=== PATIENT | female | born 1930 | race Caucasian/White ===

== ENCOUNTER 2016-04-22 11:37 | Inpatient (IN) ==
--- NOTE | 2016-04-22 12:05 | Emergency Department Note ---
Nausea/Vomiting/Diarrhea HPI - General Chief complaint: Nausea/Vomiting/Diarrhea Stated complaint: Vomiting x1.5 weeks, diarrhea, cough Time Seen by Provider: 04/22/16 12:01 Source: patient Mode of arrival: ambulatory Limitations: no limitations - History of Present Illness HPI Narrative: This patient has been ill for about a week and half with nausea vomiting diarrhea. Also a cough. Her son has been ill with a similar syndrome for about a month. MD complaint: nausea, vomiting, diarrhea Onset (ago): day(s) Description of Vomiting: watery Description of Diarrhea: water Associated Abdominal Pain: No - Related Data Home Medications Medication Instructions Recorded Confirmed Acetaminophen W/Codeine #4 1 tab PO HS 02/28/16 04/22/16 [Tylenol #4] Zolpidem [Ambien] 5 mg PO HSP PRN 02/28/16 04/22/16 rOPINIRole HCL [Requip] 4 mg PO HS 02/28/16 04/22/16 traMADol [Ultram] 50 mg PO Q6HP PRN 02/28/16 04/22/16 Previous Rx's Medication Instructions Recorded glipizide 5 mg tablet 5 mg PO BIDAC #60 tab 04/28/15 valsartan 320 1 each PO DAILY #90 tab 04/28/15 mg-hydrochlorothiazide 25 mg tablet potassium chloride ER 10 mEq 10 [facility] tab 11/17/15 tablet,extended release Allergies Allergy/AdvReac Type Severity Reaction Status Date / Time Calcium Channel Blocking Allergy Unknown Verified 04/13/15 10:01 Agents-Elliott nifedipine [From Procardia] Allergy Unknown Verified 04/13/15 10:01 Review of Systems Constitutional: Denies: fever Eyes: Denies: eye pain ENT ED: Denies: ear pain Cardiovascular: Denies: chest pain Respiratory: Reports: cough. Denies: dyspnea Gastrointestinal: Reports: nausea, vomiting, diarrhea. Denies: abdominal pain Genitourinary: Denies: urgency Musculoskeletal: Denies: back pain Integumentary: Denies: rash Past Medical History - Past Medical History Medical history: Reports: arthritis, diabetes, hyperlipidemia, hypertension, migraine, renal disease Surgical history ED: Reports: , cataract, other (shoulder) Psychiatric history: Reports: anxiety [employer] history: Reports: bilateral tubal ligation - Social History Alcohol use: Reports: None, Occasionally Drug use: Reports: none Physical Exam - General Limitations: no limitations General appearance: alert - Head Head exam: atraumatic - Eye Eye exam: Present: normal appearance - ENT ENT exam: normal exam - Neck Neck exam: Present: normal inspection - Chest Chest inspection: Present: normal inspection - Respiratory Respiratory exam: Present: normal lung sounds bilaterally - Cardiovascular Cardiovascular exam: Present: regular rate, normal rhythm, normal heart sounds - Abdominal Exam Abdominal exam: Present: soft. Absent: distention, tenderness - Neurological Exam Neurological exam: Present: alert - Psychiatric Psychiatric exam: Present: normal affect - Skin Skin exam: Present: warm, dry Course Vital Signs Temperature 97.1 F L 04/22/16 11:38 Pulse Rate 74 04/22/16 11:38 Respiratory Rate 18 04/22/16 11:38 Blood Pressure 189/85 04/22/16 11:38 Pulse Oximetry (%) 100 04/22/16 11:38 Temperature 97.1 F L 04/22/16 11:38 Pulse Rate 88 04/22/16 20:23 Respiratory Rate 18 04/22/16 20:23 Blood Pressure 185/76 04/22/16 20:23 Pulse Oximetry (%) 98 04/22/16 20:23 Nausea/Vomiting/Diarrhea - Lab Data Lab results reviewed: Yes I reviewed the patient's lab results. Result diagrams: 04/22/16 12:10 04/22/16 12:10 Lab Results 04/22/16 04/22/16 04/22/16 Range/Units 12:10 12:10 12:10 WBC 7.3 (4.5-11.0) K/mcL RBC 3.77 L (4.00-5.20) M/mcL Hgb 12.3 (12.0-15.0) g/dL Hct 35.8 L (36.0-48.0) % MCV 94.9 (80.0-100.0) fL MCH 32.6 (26.0-34.0) pg MCHC 34.3 (31.0-36.0) g/dL RDW 12.5 (11.5-14.5) % Plt Count 305 (140-440) K/mcL MPV 9.6 (7.4-10.4) fL Gran % 78.1 H (38.0-78.0) % Lymph % (Auto) 16.8 (15.5-49.0) % [place] % (Auto) 4.4 (1.0-9.0) % Eos % (Auto) 0.5 (0.0-7.0) % Baso % (Auto) 0.2 (0.0-2.0) % Gran # 5.8 (1.8-8.0) K/mcL Lymph # 1.2 L (1.5-4.8) K/mcL [place] # 0.3 (0.1-0.9) K/mcL Eos # 0 (0.0-0.7) K/mcL Baso # 0 (0.0-0.3) K/mcL VBG Lactic Acid 1.6 (0.5-2.2) mmol/L Sodium 138 (133-145) mmol/L Potassium 4.2 (3.3-5.1) mmol/L Chloride 99 (96-108) mmol/L Carbon Dioxide 18 L (22-30) mmol/L Anion Gap 21.0 H (8-16) BUN 57 H (8-23) mg/dl Creatinine 1.6 H (0.6-1.1) mg/dl GFR Calculation 29 Glucose 213 H (70-105) mg/dL Calcium 10.1 (8.6-10.4) mg/dl Total Bilirubin 0.6 (0.0-1.0) mg/dL AST 17 (0-37) U/l ALT 15 (0-40) U/l Alkaline Phosphatase 57 (39-117) U/L Total Protein 7.5 (5.9-8.4) gm/dL Albumin 4.1 (3.2-5.2) gm/dL Globulin 3.4 (2.2-3.7) gm/dL Albumin/Globulin Ratio 1.2 (1.0-2.3) Urine Color Urine Appearance Urine pH (5.0-9.0) Ur Specific Randall (1.000-1.035) Urine Protein (NEG) mg/dL Urine Glucose (UA) (NEG) mg/dL Urine Ketones (NEG) mg/dL Urine Occult Blood (<0.03) mg/dL Urine Nitrate (NEG) Urine Bilirubin (NEG) mg/dL Urine Urobilinogen (NEG) mg/dL Ur Leukocyte Esterase (NEG) /uL Urine RBC (0-1) /hpf Urine WBC (0-4) /hpf Ur Squamous Epith Cells (0-4) /hpf Amorphous Crystals (0) /hpf Urine Bacteria (0) /hpf Hyaline Casts (0-2) /lpf Urine Mucus (0) /hpf Ur Culture Indicated? 04/22/16 Range/Units 12:50 WBC (4.5-11.0) K/mcL RBC (4.00-5.20) M/mcL Hgb (12.0-15.0) g/dL Hct (36.0-48.0) % MCV (80.0-100.0) fL MCH (26.0-34.0) pg MCHC (31.0-36.0) g/dL RDW (11.5-14.5) % Plt Count (140-440) K/mcL MPV (7.4-10.4) fL Gran % (38.0-78.0) % Lymph % (Auto) (15.5-49.0) % [place] % (Auto) (1.0-9.0) % Eos % (Auto) (0.0-7.0) % Baso % (Auto) (0.0-2.0) % Gran # (1.8-8.0) K/mcL Lymph # (1.5-4.8) K/mcL [place] # (0.1-0.9) K/mcL Eos # (0.0-0.7) K/mcL Baso # (0.0-0.3) K/mcL VBG Lactic Acid (0.5-2.2) mmol/L Sodium (133-145) mmol/L Potassium (3.3-5.1) mmol/L Chloride (96-108) mmol/L Carbon Dioxide (22-30) mmol/L Anion Gap (8-16) BUN (8-23) mg/dl Creatinine (0.6-1.1) mg/dl GFR Calculation Glucose (70-105) mg/dL Calcium (8.6-10.4) mg/dl Total Bilirubin (0.0-1.0) mg/dL AST (0-37) U/l ALT (0-40) U/l Alkaline Phosphatase (39-117) U/L Total Protein (5.9-8.4) gm/dL Albumin (3.2-5.2) gm/dL Globulin (2.2-3.7) gm/dL Albumin/Globulin Ratio (1.0-2.3) Urine Color Yellow Urine Appearance Clear Urine pH 5.0 (5.0-9.0) Ur Specific Randall 1.016 (1.000-1.035) Urine Protein 100 A (NEG) mg/dL Urine Glucose (UA) 50 A (NEG) mg/dL Urine Ketones 20 A (NEG) mg/dL Urine Occult Blood Neg (<0.03) mg/dL Urine Nitrate Neg (NEG) Urine Bilirubin Neg (NEG) mg/dL Urine Urobilinogen Neg (NEG) mg/dL Ur Leukocyte Esterase Neg (NEG) /uL Urine RBC 1 (0-1) /hpf Urine WBC 1 (0-4) /hpf Ur Squamous Epith Cells < 1 (0-4) /hpf Amorphous Crystals Few A (0) /hpf Urine Bacteria 0 (0) /hpf Hyaline Casts 4 H (0-2) /lpf Urine Mucus Few (0) /hpf Ur Culture Indicated? No - Radiology Data Radiology results reviewed: Yes I reviewed the patient's radiology results. Disposition Clinical Impression: Gastroenteritis Disposition: Xfer As Outpt/Obs ([facility]) Condition: Fair Referrals: Mildred Bennett MD [Primary Care Provider] - Time of Disposition: 21:55
[2016-04-22] MEDS ORDERED: ONDANSETRON 4 MG/2 ML VIAL IV ONE (12:06)
[2016-04-22] MEDS ORDERED: 0.9 % SODIUM CHLORIDE 1,000 ML IV ONE ×2 (12:06→15:09)
[2016-04-22] MEDS ORDERED: PROMETHAZINE 25 MG/ML VIAL IV ONE ×3 (12:51→20:59)
[2016-04-22 13:04] LABS: Basophils # (Auto) 0 K/mcL (0.0-0.3); Basophils % (Auto) 0.2 % (0.0-2.0); Eosinophils # (Auto) 0 K/mcL (0.0-0.7); Eosinophils % (Auto) 0.5 % (0.0-7.0); Granulocytes % (Auto) 78.1 % (38.0-78.0); Lymphocytes # (Auto) 1.2 K/mcL (1.5-4.8); Lymphocytes % (Auto) 16.8 % (15.5-49.0); Mean Cell Volume 94.9 fL (80.0-100.0); Mean Corpuscular HGB Conc 34.3 g/dL (31.0-36.0); Mean Corpuscular Hemoglobin 32.6 pg (26.0-34.0); Monocytes # (Auto) 0.3 K/mcL (0.1-0.9); Monocytes % (Auto) 4.4 % (1.0-9.0); Platelet Count 305 K/mcL (140-440); RBC 3.77 M/mcL (4.00-5.20); Red Cell Distribution Width 12.5 % (11.5-14.5)
[2016-04-22 13:44] LABS: ALT/SGPT 15 U/l (0-40); Albumin 4.1 gm/dL (3.2-5.2); Albumin/Globulin Ratio 1.2 (1.0-2.3); Alkaline Phosphatase 57 U/L (39-117); Blood Urea Nitrogen 57 mg/dl (8-23)
[2016-04-22 14:03] LABS: Appearance,Urine CLEAR; Bacteria,Urine 0 /hpf (0); Bilirubin,Urine NEG (NEG); Color,Urine YELLOW; Glucose,Urine (UA) 50 mg/dL (NEG); Leukocyte Esterase,Urine NEG /uL (NEG); Mucus,Urine FEW /hpf (0); Nitrate,Urine NEG (NEG); Protein,Urine 100 mg/dL (NEG); Specific Gravity,Urine 1.016 (1.000-1.035); Urine Amorphous Crystals FEW /hpf (0); Urine Blood NEG mg/dL (<0.03); Urine Hyaline Cast 4 /lpf (0-2); Urine RBC 1 /hpf (0-1); Urine Squamous Epithelial Cell < 1 /hpf (0-4); Urine WBC 1 /hpf (0-4); Urobilinogen,Urine NEG (NEG)
--- NOTE | 2016-04-22 18:50 | XRay Report ---
CLINICAL INFORMATION: Cough COMPARISON: 03/01/2015 FINDINGS: The heart is at the upper limits of normal in size. There is mitral annular calcification is again noted. The mediastinum and pulmonary vessels are otherwise normal. Lung volumes are mildly elevated compatible with known chronic bronchitis changes (also seen on 05/13/[address]). There are no infiltrates, nodules or other new pulmonary abnormalities. No effusions. Moderate calcific tendinitis swelling noted in the left rotator cuff IMPRESSION: 1. Chronic bronchitis - stable. No acute disease 2. Calcific tendinitis - left rotator cuff. Stable Interpreted and Authenticated by: Tye Mooney 04/22/16
[2016-04-22] MEDS ORDERED: 0.9 % SODIUM CHLORIDE 1,000 ML IV SCH (19:30)
[2016-04-22] MEDS ORDERED: POTASSIUM CHLORIDE 40 MEQ in DEXTROSE 5% IN WATER 500 ML IV PRN (23:01)
[2016-04-22] MEDS: LACTATED RINGERS 1,000 ML IV SCH (23:38)
[2016-04-23] MEDS ORDERED: PROMETHAZINE 25 MG/ML VIAL ONE ×2 (01:06→03:11)
[2016-04-23] MEDS ORDERED: traMADol 50 MG TABLET PO PRN ×2 (02:56→10:00)
[2016-04-23] MEDS: rOPINIRole 1 MG TABLET PO SCH ×2 (03:16→20:58)
[2016-04-23] MEDS: ONDANSETRON 4 MG/2 ML VIAL IV PRN ×4 (06:55→20:59)
[2016-04-23 07:52] LABS: Mean Cell Volume 95.3 fL (80.0-100.0); Mean Corpuscular HGB Conc 35.2 g/dL (31.0-36.0); Mean Corpuscular Hemoglobin 33.6 pg (26.0-34.0); Platelet Count 226 K/mcL (140-440); RBC 2.93 M/mcL (4.00-5.20); Red Cell Distribution Width 12.7 % (11.5-14.5)
[2016-04-23 07:55] LABS: ALT/SGPT 10 U/l (0-40); Albumin 2.8 gm/dL (3.2-5.2); Albumin/Globulin Ratio 1.2 (1.0-2.3); Alkaline Phosphatase 37 U/L (39-117); Bilirubin,Direct < 0.2 mg/dL (0.0-0.3); Blood Urea Nitrogen 30 mg/dl (8-23); Gamma Glutamyl Transpeptidase 31 U/L (5-36); Magnesium 0.9 mg/dL (1.6-2.5); Phosphorous 1.8 mg/dL (2.7-4.5); Uric Acid 7.7 mg/dL (2.5-8.0)
[2016-04-23] MEDS: MAGNESIUM SULFATE 2 GM/50 ML BAG IV PRN ×2 (08:09→09:55)
[2016-04-23] MEDS ORDERED: MAGNESIUM SULFATE 32.48 MEQ in DEXTROSE 5% IN WATER 50 ML IV ONE (09:00)
[2016-04-23 09:37] LABS: Band Neutrophils % 2 % (0-10); Lymphocytes % 14 % (15-49); Monocytes % (Manual) 5 % (1-9); Platelet Estimate NORMAL (NORMAL); RBC Morphology NORMAL (NORMAL); Segmented Neutrophils % 79 % (38-78)
--- NOTE | 2016-04-23 10:01 | Internal Med Progress Note ---
Medical - PN: Subj Patient information: Note initiated : 04/23/16 at 9:53 am Service Date, if different from initiated Date: [] Patient: Ana Mendez 85 y/o F admitted on 04/22/16 for Vomiting x1.5 wks, Diarrhea, Cough/Gastroenteritis. Chief Complaint: [] Interval history: 04/22- patient admitted with severe nausea vomiting diarrhea weakness and acute renal failure. Started on crystalloids along with antiemetics. Stool studies pending. Patient admitted in light of high risk decompensation and acute kidney injury. Continue crystalloids and supportive management until etiology identified 04/23- patient doing better. Creatinine down from 1.7-1. BUN down from 57-30. Persistent diarrhea. Improved nausea. Stable hemodynamics. Await stool studies including culture/neurovirus/ leukocytes. C. difficile negative - Constitutional Vitals: Vital Signs Temp Pulse Resp BP Pulse Ox 98.5 F 63 18 186/75 94 04/23/16 08:00 04/23/16 08:00 04/23/16 08:00 04/23/16 08:00 04/23/16 08:00 Period Temp Pulse Resp BP Sys/Pacheco Pulse Ox Last 24 Hr 97.1 F-98.5 F 63-85 18-28 170-196/75-108 94-100 Intake and Output 04/22/16 04/23/16 04/23/16 21:59 05:59 13:59 Output Total 875 / 875 520 / 520 Balance -875 / 125 -520 / -520 Intake & Output: Intake & Output 04/22/16 04/23/16 04/23/16 21:59 05:59 13:59 Output Total 875 / 875 520 / 520 Balance -875 / 125 -520 / -520 Output: Void Amount 875 / 875 520 / 520 Other: # Bowel Movements 1 1 Medical - PN: Obj Da - Labs CBC & Chem 7: 04/23/16 06:20 04/23/16 06:20 Labs: Abnormal Lab Results 04/23/16 04/23/16 06:20 06:20 RBC 2.93 L Hgb 9.8 L Hct 28.0 L Seg Neutrophils % 79 H Lymphocytes % 14 L Carbon Dioxide 18 L Anion Gap 21.0 H BUN 30 H Glucose 127 H Calcium 8.2 L Phosphorus 1.8 L Magnesium 0.9 L* Alkaline Phosphatase 37 L Total Protein 5.1 L Albumin 2.8 L Meds: Medications Lactated Ringer's (Lactated Ringers) 1,000 mls @ 75 mls/hr IV .[id number] [facility] Last Admin: 04/22/16 23:38 Dose: 75 mls/hr Potassium Chloride 40 meq/ (Dextrose) 520 mls @ 130 mls/hr IV UD PRN PRN Reason: K+ = or < 3.5 Magnesium Sulfate (Magnesium Sulfate) 2 gm in 50 mls @ 50 mls/hr IV UD PRN PRN Reason: Mag < or = 1.7 Last Admin: 04/23/16 08:09 Dose: 50 mls/hr Ondansetron HCl (Zofran) 4 mg IV Q4HP PRN PRN Reason: Nausea And Vomiting Last Admin: 04/23/16 06:55 Dose: 4 mg Potassium Chloride (Potassium Chloride) 15 meq PT BIDCC [facility] Potassium/Phosphorus/Sodium (Neutra Phos) 2 packet PO BID [facility] Promethazine HCl (Phenergan) 12.5 mg IV Q4-6HP PRN PRN Reason: Nausea And Vomiting Ropinirole HCl (Requip) 4 mg PO HS [facility] Last Admin: 04/23/16 03:16 Dose: 4 mg Tramadol HCl (Ultram) 50 mg PO Q6HP PRN PRN Reason: Pain Medical - PN: A/P - Time Spent With Patient Total time spent is greater than 50% in coordination of care (as documented) at patient's floor/unit and/or counseling patient: 25 - 35 minutes (1) Gastroenteritis Status: Acute Assessment and plan: * Acute gastroenteritis-possible viral etiology * Acute renal failure clinically improving. creatinine down to 1 * systemic inflammatory response syndrome secondary to diarrhea-improving * severe volume depletion secondary to diarrhea. Continue crystalloids * hypomagnesemia at 0.9 -replace-IV magnesium * hypokalemia replace potassium * low phosphorus continue replacement * istory of hypertension restart home medications plan * continue crystalloids and aggressive electrolyte replacement * Symptomatic management * pre-existing medical condition management as above * possible discharge in 48 hours once clinically improved Current Visit: Yes Medical - PN: Qual - VTE Deep Vein Thrombosis/Pulmonary Embolism Present on Admission: No
[2016-04-23] MEDS: NEUTRA PHOS 1 PACKET PO SCH ×2 (11:40→20:58)
--- NOTE | 2016-04-23 14:33 | History and Physical Report ---
DATE OF ADMISSION: 04/22/2016 REASON FOR ADMISSION: Nausea, vomiting, diarrhea and weakness. HISTORY OF CHIEF COMPLAINTS: The patient is an 85-year-old who comes to [facility] Emergency Room with approximately 1 week onset of worsening diarrhea, nausea, vomiting, inability to take orally. The patient has ever since deteriorated with progressive loss of function and inability to perform activities of daily living. With worsening symptoms, the patient came to [facility] ER where initial workup was significant for acute renal failure with a creatinine of 1.7, BUN 57, severe volume depletion. The patient received almost 2.5 liters of crystalloids. She has had persistent nausea. Hospitalist Service was consulted in light of high risk decompensation and nonresolving diarrhea. C. diff was negative. At the time of examination, the patient is alert and oriented. She was able to provide most of the history. She is anxious. She denies change in medications or recent sick contacts. She further denies bloody stool, dysuria, chest pain but she endorses to lightheadedness, dizziness, weakness, fatigue, and lethargy, she denies shaking chills, fever, drenching sweats, glandular swelling, rash, joint pain, arthralgias. REVIEW OF SYSTEMS: Ten-point review of system was performed and negative except the ones discussed above. PAST MEDICAL HISTORY: 1. Restless leg syndrome. 2. Degenerative joint disease. 3. Hypertension 4. Diabetes mellitus type 2. CURRENT MEDICATIONS: 1. Zolpidem 5 mg. 2. Ropinirole 4 mg. 3. Tramadol 50 mg q.6h. 4. Glipizide 5 mg b.i.d. 5. Valsartan/hydrochlorothiazide 320/25 mg. 6. Potassium 10 mEq. ALLERGIES: KNOWN TO NIFEDIPINE. SOCIAL HISTORY: Denies history of smoking or alcohol. She is a FULL CODE STATUS. [place] FAMILY HISTORY: None relevant to presenting symptoms. PHYSICAL EXAMINATION: GENERAL: The patient is alert but fatigued, lethargic. BMI 30. Height 5 feet 1 inch. VITAL SIGNS: Blood pressure 185/76, respiratory 18, temperature 97.1, pulse 82, and saturation 98% on room air. HEENT: Pupils symmetric. Oral cavity is dry. No ear or nose discharge. Head is normocephalic and atraumatic. NECK: No lymphadenopathy. CHEST: S1, S2 regular rhythm. ESM grade 1. Diminished breath sounds at bases. ABDOMEN: Soft, hyperactive bowel sounds but no rebound or guarding. LOWER EXTREMITIES: No cyanosis or clubbing. No joint swelling. SKIN: No suspicious lesions. PSYCHIATRIC: Anxious, fatigued and lethargic. NEURO: Nonfocal, moving all four extremities. LABS AND IMAGING: White count 7.3, hemoglobin 12.3, and platelets 305. Lactic acid 1.6, sodium 130, potassium 4.2, creatinine 1.6, BUN 57. LFTs unremarkable. UA unremarkable. cultures pending. X-ray chest: Chronic bronchitis. No acute flare or acute process. ASSESSMENT AND PLAN: An 85-year-old admitted with intractable nausea, vomiting, diarrhea, volume depletion, acute renal failure. 1. Acute gastroenteritis, severe diarrhea. Continue crystalloids and supportive management, evaluate for stool leukocytes, stool cultures, C. diff negative. Continue oral and IV crystalloids. 2. Acute renal failure secondary to volume depletion. Creatinine was 1.7, BUN 57, likely prerenal. Continue crystalloids and monitor renal function. 3. History of hypertension. Continue as needed hydralazine and restart ARB once renal function improves. 4. Other prior medical issues, including: a. History of restless leg syndrome. Continue ropinirole. b. Diabetes mellitus type 2. Continue sliding scale insulin. PLAN: Patient will be admitted inpatient in light of acute renal failure from volume depletion. AA:ray Job ID: [id number] Doc ID: [id number] Deven Rascon MD [facility]
[2016-04-23] MEDS: LACTATED RINGERS 1,000 ML IV SCH (16:16)
[2016-04-23] MEDS: PROMETHAZINE 25 MG/ML VIAL IV PRN (18:14)
[2016-04-23] MEDS: POTASSIUM CHLORIDE 20 MEQ/15 ML ML PT SCH (20:58)
[2016-04-23] MEDS ORDERED: ROPINIROLE HCL 4 MG PO SCH (21:00)
[2016-04-24] MEDS: ONDANSETRON 4 MG/2 ML VIAL IV PRN ×4 (03:21→18:59)
[2016-04-24] MEDS: LACTATED RINGERS 1,000 ML IV SCH ×4 (04:41→21:12)
[2016-04-24 07:21] LABS: ALT/SGPT 13 U/l (0-40); Albumin 3.7 gm/dL (3.2-5.2); Albumin/Globulin Ratio 1.2 (1.0-2.3); Alkaline Phosphatase 49 U/L (39-117); Bilirubin,Direct < 0.2 mg/dL (0.0-0.3); Blood Urea Nitrogen 29 mg/dl (8-23); Gamma Glutamyl Transpeptidase 38 U/L (5-36); Magnesium 2.2 mg/dL (1.6-2.5); Phosphorous 2.5 mg/dL (2.7-4.5); Uric Acid 9.9 mg/dL (2.5-8.0)
[2016-04-24 07:55] LABS: Mean Cell Volume 96.5 fL (80.0-100.0); Mean Corpuscular HGB Conc 33.5 g/dL (31.0-36.0); Mean Corpuscular Hemoglobin 32.3 pg (26.0-34.0); Platelet Count 248 K/mcL (140-440); Red Cell Distribution Width 12.9 % (11.5-14.5)
[2016-04-24 08:04] LABS: Lymphocytes % 12 % (15-49); Monocytes % (Manual) 5 % (1-9); Platelet Estimate NORMAL (NORMAL); RBC Morphology NORMAL (NORMAL); Segmented Neutrophils % 83 % (38-78)
[2016-04-24] MEDS: POTASSIUM CHLORIDE 20 MEQ/15 ML ML PT SCH ×2 (08:12→17:30)
[2016-04-24] MEDS: HYDROCHLOROTHIAZIDE 25 MG TABLET PO SCH (08:19)
[2016-04-24] MEDS: NEUTRA PHOS 1 PACKET PO SCH ×2 (08:20→21:13)
--- NOTE | 2016-04-24 09:38 | Internal Med Progress Note ---
Medical - PN: Subj Patient information: Note initiated : 04/24/16 at 9:34 am Service Date, if different from initiated Date: [] Patient: Ana Mendez 85 y/o F admitted on 04/22/16 for Vomiting x1.5 wks, Diarrhea, Cough/Gastroenteritis. Chief Complaint: [] Interval history: 04/22- patient admitted with severe nausea vomiting diarrhea weakness and acute renal failure. Started on crystalloids along with antiemetics. Stool studies pending. Patient admitted in light of high risk decompensation and acute kidney injury. Continue crystalloids and supportive management until etiology identified 04/23- patient doing better. Creatinine down from 1.7-1. BUN down from 57-30. Persistent diarrhea. Improved nausea. Stable hemodynamics. Await stool studies including culture/neurovirus/ leukocytes. C. difficile negative 04/24- patient doing well. No overnight events. Improved diarrhea. No abdominal pain. Improving appetite. Still feels very weak and unable to eat out of bed. Continue toattempt physical therapy. No concerns expressed by nursing staff. Stable hemodynamics. Improving electrolytes. Magnesium up to 2.2. Phosphorus 2.5. White count up at 15.4. C. difficile negative. systolics around 190. Use when necessary hydralazine. Creatinine 1.3 down from 1.7. Continue crystalloids - Constitutional Vitals: Vital Signs Temp Pulse Resp BP Pulse Ox 98.3 F 61 28 H 190/70 94 04/24/16 06:43 04/24/16 06:43 04/24/16 06:43 04/24/16 07:30 04/24/16 06:43 Period Temp Pulse Resp BP Sys/Pacheco Pulse Ox Last 24 Hr 97.1 F-98.3 F 61-83 14-28 112-215/60-90 94-97 Intake and Output 04/23/16 04/24/16 04/24/16 21:59 05:59 13:59 Intake Total 100 / 100 981 / 981 122 / 122 Output Total 425 / 425 700 / 700 59 / 59 Balance -325 / -325 281 / 281 63 / 63 Weight 134 lb Intake & Output: Intake & Output 04/23/16 04/24/16 04/24/16 21:59 05:59 13:59 Intake Total 100 / 100 981 / 981 122 / 122 Output Total 425 / 425 700 / 700 59 / 59 Balance -325 / -325 281 / 281 63 / 63 Weight 134 lb Intake: IV 931 / 931 122 / 122 Lactated Ringers 1,000 ml 931 / 931 122 / 122 @ 75 mls/hr IV .[id number] [facility] Rx#:[id number] Oral 100 / 100 50 / 50 Output: Void Amount 425 / 425 700 / 700 59 / 59 Other: # Voids 1 1 General appearance: cooperative, no acute distress Exam: nondistended abdomen nonlabored breathing Minimal anxiety o lymphedema Medical - PN: Obj Da - Labs CBC & Chem 7: 04/24/16 04:50 04/24/16 04:50 Labs: Abnormal Lab Results 04/24/16 04/24/16 04/23/16 04:50 04:50 06:20 WBC 15.4 H RBC 3.90 L Hgb Hct Seg Neutrophils % 83 H Lymphocytes % 12 L Carbon Dioxide 18 L Anion Gap 19.0 H 21.0 H BUN 29 H 30 H Creatinine 1.3 H Glucose 133 H 127 H Uric Acid 9.9 H Calcium 8.2 L Phosphorus 2.5 L 1.8 L Magnesium 0.9 L* GGT 38 H Alkaline Phosphatase 37 L Lactate Dehydrogenase 264 H Total Protein 5.1 L Albumin 2.8 L Triglycerides 200 H 04/23/16 06:20 WBC RBC 2.93 L Hgb 9.8 L Hct 28.0 L Seg Neutrophils % 79 H Lymphocytes % 14 L Carbon Dioxide Anion Gap BUN Creatinine Glucose Uric Acid Calcium Phosphorus Magnesium GGT Alkaline Phosphatase Lactate Dehydrogenase Total Protein Albumin Triglycerides Meds: Medications Hydrochlorothiazide (Oretic) 25 mg PO DAILY [facility] Last Admin: 04/24/16 08:19 Dose: 25 mg Lactated Ringer's (Lactated Ringers) 1,000 mls @ 75 mls/hr IV .[id number] [facility] Last Admin: 04/24/16 06:19 Dose: 75 mls/hr Potassium Chloride 40 meq/ (Dextrose) 520 mls @ 130 mls/hr IV UD PRN PRN Reason: K+ = or < 3.5 Magnesium Sulfate (Magnesium Sulfate) 2 gm in 50 mls @ 50 mls/hr IV UD PRN PRN Reason: Mag < or = 1.7 Last Admin: 04/23/16 09:55 Dose: 50 mls/hr Olmesartan (Benicar) 40 mg PO DAILY [facility] Ondansetron HCl (Zofran) 4 mg IV Q4HP PRN PRN Reason: Nausea And Vomiting Last Admin: 04/24/16 07:28 Dose: 4 mg Potassium Chloride (Potassium Chloride) 15 meq PT BIDCC [facility] Last Admin: 04/24/16 08:12 Dose: Not Given Potassium/Phosphorus/Sodium (Neutra Phos) 2 packet PO BID [facility] Last Admin: 04/24/16 08:20 Dose: 2 packet Promethazine HCl (Phenergan) 12.5 mg IV Q4-6HP PRN PRN Reason: Nausea And Vomiting Last Admin: 04/23/16 18:14 Dose: 12.5 mg Ropinirole HCl (Requip) 4 mg PO HS [facility] Last Admin: 04/23/16 20:58 Dose: 4 mg Tramadol HCl (Ultram) 50 mg PO Q6HP PRN PRN Reason: Pain Medical - PN: A/P - Time Spent With Patient Total time spent is greater than 50% in coordination of care (as documented) at patient's floor/unit and/or counseling patient: 25 - 35 minutes (1) Gastroenteritis Status: Acute Assessment and plan: * Acute gastroenteritis-possible viral etiology. await neurovirus. Negative C. difficile.await cultures * Acute renal failure clinically improving. creatinine at 1.3 * systemic inflammatory response syndrome secondary to diarrhea-worsening leukocytosis. Stool cultures negative so far * severe volume depletion secondary to diarrhea. Continue crystalloids * hypomagnesemia at 0.9 -magnesium 2.2 with replacement * hypokalemia- resolved with replacement * low phosphorus - phosphorus improved to 2.2 * History of hypertension continue home meds medications/as needed hydralazine plan * continue crystalloids and aggressive electrolyte replacement * as needed hydralazine * aggressive physical therapy * anticipate discharge once diarrhea and SIRS resolved Current Visit: Yes Medical - PN: Qual - VTE Deep Vein Thrombosis/Pulmonary Embolism Present on Admission: No
[2016-04-24] MEDS: hydrALAZINE 20 MG/ML VIAL IV PRN ×2 (12:10→14:30)
[2016-04-24] MEDS: OLMESARTAN MEDOXOMIL 20 MG TABLET PO SCH (16:20)
[2016-04-24] MEDS: PROMETHAZINE 25 MG/ML VIAL IV PRN (21:13)
[2016-04-24] MEDS: rOPINIRole 1 MG TABLET PO SCH ×2 (21:13→22:28)
[2016-04-25] MEDS: LACTATED RINGERS 1,000 ML IV SCH ×2 (01:29→17:08)
[2016-04-25] MEDS: ONDANSETRON 4 MG/2 ML VIAL IV PRN ×2 (01:29→06:52)
[2016-04-25] MEDS: PROMETHAZINE 25 MG/ML VIAL IV PRN ×2 (02:56→09:09)
[2016-04-25 05:48] LABS: Mean Cell Volume 94.3 fL (80.0-100.0); Platelet Count 247 K/mcL (140-440); RBC 3.64 M/mcL (4.00-5.20); Red Cell Distribution Width 12.4 % (11.5-14.5)
[2016-04-25 07:23] LABS: ALT/SGPT 13 U/l (0-40); Albumin 3.4 gm/dL (3.2-5.2); Albumin/Globulin Ratio 1.2 (1.0-2.3); Alkaline Phosphatase 44 U/L (39-117); Bilirubin,Direct < 0.2 mg/dL (0.0-0.3); Blood Urea Nitrogen 28 mg/dl (8-23); Gamma Glutamyl Transpeptidase 37 U/L (5-36); Magnesium 1.6 mg/dL (1.6-2.5); Phosphorous 2.3 mg/dL (2.7-4.5); Uric Acid 8.9 mg/dL (2.5-8.0)
[2016-04-25 08:35] LABS: Lymphocytes % 17 % (15-49); Monocytes % (Manual) 2 % (1-9); Platelet Estimate NORMAL (NORMAL); RBC Morphology NORMAL (NORMAL); Segmented Neutrophils % 81 % (38-78)
[2016-04-25] MEDS: MAGNESIUM SULFATE 2 GM/50 ML BAG IV PRN (09:11)
[2016-04-25] MEDS ORDERED: 0.9 % SODIUM CHLORIDE 10 ML SYRINGE IV PRN (10:07)
[2016-04-25] MEDS: HYDROCHLOROTHIAZIDE 25 MG TABLET PO SCH (10:27)
[2016-04-25] MEDS: OLMESARTAN MEDOXOMIL 20 MG TABLET PO SCH (10:27)
[2016-04-25] MEDS: NEUTRA PHOS 1 PACKET PO SCH ×2 (10:27→21:11)
[2016-04-25] MEDS: POTASSIUM CHLORIDE 20 MEQ/15 ML ML PT SCH ×2 (10:27→16:42)
--- NOTE | 2016-04-25 11:27 | Internal Med Progress Note ---
Medical - PN: Subj Patient information: Note initiated : 04/25/16 at 11:24 am Service Date, if different from initiated Date: [] Patient: Ana Mendez 85 y/o F admitted on 04/22/16 for Vomiting x1.5 wks, Diarrhea, Cough/Gastroenteritis. Chief Complaint: [] Interval history: 04/22- patient admitted with severe nausea vomiting diarrhea weakness and acute renal failure. Started on crystalloids along with antiemetics. Stool studies pending. Patient admitted in light of high risk decompensation and acute kidney injury. Continue crystalloids and supportive management until etiology identified 04/23- patient doing better. Creatinine down from 1.7-1. BUN down from 57-30. Persistent diarrhea. Improved nausea. Stable hemodynamics. Await stool studies including culture/neurovirus/ leukocytes. C. difficile negative 04/24- patient doing well. No overnight events. Improved diarrhea. No abdominal pain. Improving appetite. Still feels very weak and unable to eat out of bed. Continue toattempt physical therapy. No concerns expressed by nursing staff. Stable hemodynamics. Improving electrolytes. Magnesium up to 2.2. Phosphorus 2.5. White count up at 15.4. C. difficile negative. systolics around 190. Use when necessary hydralazine. Creatinine 1.3 down from 1.7. Continue crystalloids 04/25- Patient seen in room along with son. No overnight events. Continues to feel weak and fatigued. Potassium at 3. On oral replacement. No IV ccess for IV electrolytes. Consult anesthesia for IV placement. no diarrhea. Persistent nausea. Tolerating oral diet. Nutrition to provide high-protein calorie supplements - Constitutional Vitals: Vital Signs Temp Pulse Resp BP Pulse Ox 97.7 F 66 16 156/78 97 04/25/16 03:00 04/25/16 07:46 04/25/16 07:46 04/25/16 07:46 04/25/16 07:46 Period Temp Pulse Resp BP Sys/Pacheco Pulse Ox Last 24 Hr 97.5 F-98.5 F 65-78 16-20 156-204/71-100 93-98 Intake and Output 04/24/16 04/25/16 04/25/16 21:59 05:59 13:59 Intake Total 1000 / 1000 100 / 100 Output Total 750 / 750 325 / 325 150 / 150 Balance 250 / 250 -225 / -225 -150 / -150 Weight 134 lb Intake & Output: Intake & Output 04/24/16 04/25/16 04/25/16 21:59 05:59 13:59 Intake Total 1000 / 1000 100 / 100 Output Total 750 / 750 325 / 325 150 / 150 Balance 250 / 250 -225 / -225 -150 / -150 Weight 134 lb Intake: IV 1000 / 1000 Lactated Ringers 1,000 ml 1000 / 1000 @ 75 mls/hr IV .[id number] [facility] Rx#:[id number] Oral 100 / 100 Output: Urine Catheter Amount 450 / 450 Void Amount 50 / 50 325 / 325 150 / 150 Stool 250 / 250 Other: # Voids 1 1 # Bowel Movements 1 General appearance: cooperative, no acute distress Exam: lert oriented nonlabored breathing fatigue lethargic No lymphedema no anxiety Medical - PN: Obj Da - Labs CBC & Chem 7: 04/25/16 04:00 04/25/16 06:03 Labs: Abnormal Lab Results 04/25/16 04/25/16 04/24/16 06:03 04:00 04:50 WBC 14.1 H RBC 3.64 L Hgb Hct 34.3 L Seg Neutrophils % 81 H Lymphocytes % Potassium 3.0 L Carbon Dioxide Anion Gap 19.0 H BUN 28 H 29 H Creatinine 1.2 H 1.3 H Glucose 138 H 133 H Uric Acid 8.9 H 9.9 H Calcium Phosphorus 2.3 L 2.5 L Magnesium GGT 37 H 38 H Alkaline Phosphatase Lactate Dehydrogenase 264 H Total Protein Albumin Triglycerides 187 H 200 H 04/24/16 04/23/16 04/23/16 04:50 06:20 06:20 WBC 15.4 H RBC 3.90 L 2.93 L Hgb 9.8 L Hct 28.0 L Seg Neutrophils % 83 H 79 H Lymphocytes % 12 L 14 L Potassium Carbon Dioxide 18 L Anion Gap 21.0 H BUN 30 H Creatinine Glucose 127 H Uric Acid Calcium 8.2 L Phosphorus 1.8 L Magnesium 0.9 L* GGT Alkaline Phosphatase 37 L Lactate Dehydrogenase Total Protein 5.1 L Albumin 2.8 L Triglycerides Meds: Medications Hydralazine HCl (Apresoline) 10 - 20 mg IV Q4-6HP PRN PRN Reason: Hypertension Last Admin: 04/24/16 14:30 Dose: 10 mg Hydrochlorothiazide (Oretic) 25 mg PO DAILY [facility] Last Admin: 04/25/16 10:27 Dose: Not Given Lactated Ringer's (Lactated Ringers) 1,000 mls @ 75 mls/hr IV .[id number] [facility] Last Admin: 04/25/16 01:29 Dose: Not Given Potassium Chloride 40 meq/ (Dextrose) 520 mls @ 130 mls/hr IV UD PRN PRN Reason: K+ = or < 3.5 Magnesium Sulfate (Magnesium Sulfate) 2 gm in 50 mls @ 50 mls/hr IV UD PRN PRN Reason: Mag < or = 1.7 Last Admin: 04/25/16 09:11 Dose: 50 mls/hr Potassium Chloride 40 meq/ (Dextrose) 520 mls @ 130 mls/hr IV ONCE ONE Stop: 04/25/16 19:59 Olmesartan (Benicar) 40 mg PO DAILY [facility] Last Admin: 04/25/16 10:27 Dose: Not Given Ondansetron HCl (Zofran) 4 mg IV Q4HP PRN PRN Reason: Nausea And Vomiting Last Admin: 04/25/16 06:52 Dose: 4 mg Potassium Chloride (Potassium Chloride) 15 meq PT BIDCC [facility] Last Admin: 04/25/16 10:27 Dose: Not Given Potassium/Phosphorus/Sodium (Neutra Phos) 2 packet PO BID [facility] Last Admin: 04/25/16 10:27 Dose: Not Given Promethazine HCl (Phenergan) 12.5 mg IV Q4-6HP PRN PRN Reason: Nausea And Vomiting Last Admin: 04/25/16 09:09 Dose: 12.5 mg Ropinirole HCl (Requip) 4 mg PO HS [facility] Last Admin: 04/24/16 22:28 Dose: 4 mg Sodium Chloride (Saline Flush) 10 ml IV Q8 [facility] Sodium Chloride (Saline Flush) 10 ml IV UD PRN PRN Reason: Protocol Tramadol HCl (Ultram) 50 mg PO Q6HP PRN PRN Reason: Pain Medical - PN: A/P - Time Spent With Patient Total time spent is greater than 50% in coordination of care (as documented) at patient's floor/unit and/or counseling patient: 25 - 35 minutes (1) Gastroenteritis Status: Acute Assessment and plan: * Acute gastroenteritis with severe diarrhea-possible viral etiology. fully resolved * Acute renal failure clinically improving. creatinine improved 1.2 * hypokalemia-potassium at 3. continue replacement -0 mEq oral potassium * SIRS-clinically resolved. White count downtrending * severe deconditioning with weakness-Continue physical therapy/protein calorie supplements * hypomagnesemia at 0.9 -magnesium 2.2 with replacement * hypokalemia- resolved with replacement * low phosphorus - continue oral replacement * History of hypertension continue home meds medications/as needed hydralazine plan * aggressive ectrolyte replacement including potassium and phosphorus * aggressive physical therapy * pre-existing medical condition management as above * possible dischargeIn 24 hours Current Visit: Yes Medical - PN: Qual - VTE Deep Vein Thrombosis/Pulmonary Embolism Present on Admission: No
[2016-04-25] MEDS ORDERED: POTASSIUM CHLORIDE 40 MEQ in DEXTROSE 5% IN WATER 500 ML IV ONE (16:00)
[2016-04-25] MEDS: 0.9 % SODIUM CHLORIDE 10 ML SYRINGE IV SCH ×2 (16:27→22:53)
[2016-04-25] MEDS: rOPINIRole 1 MG TABLET PO SCH (21:11)
[2016-04-25] MEDS ORDERED: BENZOCAINE/MENTHOL 1 LOZENGE PO PRN (23:25)
[2016-04-25] MEDS ORDERED: BENZOCAINE/MENTHOL 1 LOZENGE PO ONE (23:43)
[2016-04-26] MEDS: 0.9 % SODIUM CHLORIDE 10 ML SYRINGE IV SCH ×2 (05:41→15:30)
[2016-04-26] MEDS: LACTATED RINGERS 1,000 ML IV SCH (05:41)
[2016-04-26 06:51] LABS: Mean Cell Volume 97.6 fL (80.0-100.0); Mean Corpuscular HGB Conc 33.5 g/dL (31.0-36.0); Mean Corpuscular Hemoglobin 32.7 pg (26.0-34.0); Platelet Count 246 K/mcL (140-440); RBC 3.22 M/mcL (4.00-5.20)
[2016-04-26 07:29] LABS: ALT/SGPT 20 U/l (0-40); Albumin/Globulin Ratio 1.2 (1.0-2.3); Alkaline Phosphatase 41 U/L (39-117); Bilirubin,Direct < 0.2 mg/dL (0.0-0.3); Blood Urea Nitrogen 27 mg/dl (8-23); Gamma Glutamyl Transpeptidase 38 U/L (5-36); Magnesium 1.8 mg/dL (1.6-2.5); Phosphorous 1.8 mg/dL (2.7-4.5); Uric Acid 7.7 mg/dL (2.5-8.0)
[2016-04-26 08:24] LABS: Band Neutrophils % 2 % (0-10); Eosinophils % (Manual) 1 % (0-7); Lymphocytes % 32 % (15-49); Monocytes % (Manual) 4 % (1-9); Platelet Estimate NORMAL (NORMAL); RBC Morphology NORMAL (NORMAL); Segmented Neutrophils % 61 % (38-78)
[2016-04-26] MEDS: POTASSIUM CHLORIDE 20 MEQ/15 ML ML PT SCH ×2 (09:30→17:07)
[2016-04-26] MEDS: NEUTRA PHOS 1 PACKET PO SCH ×2 (09:30→20:14)
[2016-04-26] MEDS: HYDROCHLOROTHIAZIDE 25 MG TABLET PO SCH (09:30)
[2016-04-26] MEDS: OLMESARTAN MEDOXOMIL 20 MG TABLET PO SCH (09:31)
--- NOTE | 2016-04-26 10:37 | Internal Med Progress Note ---
Medical - PN: Subj Patient information: Note initiated : 04/26/16 at 10:34 am Patient: Ana Mendez 85 y/o F admitted on 04/22/16 for Vomiting x1.5 wks, Diarrhea, Cough/Gastroenteritis. Chief Complaint: Interval history: 04/22- patient admitted with severe nausea vomiting diarrhea weakness and acute renal failure. Started on crystalloids along with antiemetics. Stool studies pending. Patient admitted in light of high risk decompensation and acute kidney injury. Continue crystalloids and supportive management until etiology identified 04/23- patient doing better. Creatinine down from 1.7-1. BUN down from 57-30. Persistent diarrhea. Improved nausea. Stable hemodynamics. Await stool studies including culture/neurovirus/ leukocytes. C. difficile negative 04/24- patient doing well. No overnight events. Improved diarrhea. No abdominal pain. Improving appetite. Still feels very weak and unable to eat out of bed. Continue toattempt physical therapy. No concerns expressed by nursing staff. Stable hemodynamics. Improving electrolytes. Magnesium up to 2.2. Phosphorus 2.5. White count up at 15.4. C. difficile negative. systolics around 190. Use when necessary hydralazine. Creatinine 1.3 down from 1.7. Continue crystalloids 04/25- Patient seen in room along with son. No overnight events. Continues to feel weak and fatigued. Potassium at 3. On oral replacement. No IV ccess for IV electrolytes. Consult anesthesia for IV placement. no diarrhea. Persistent nausea. Tolerating oral diet. Nutrition to provide high-protein calorie supplements 04/26- atient doing well. Ongoing physical therapy. Able to tolerate oral diet. No further diarrhea and nausea. Continues to feel weak. Discussed ischarge planning including SNF however patient wanting to go home once she is feeling better. Continue oral diet/nutrition supplements along with Replacement. No concerns expressed by nursing staff - Constitutional Vitals: Vital Signs Temp Pulse Resp BP Pulse Ox 98.0 F 83 18 150/89 96 04/26/16 07:31 04/26/16 07:31 04/26/16 07:31 04/26/16 07:31 04/26/16 07:31 Period Temp Pulse Resp BP Sys/Pacheco Pulse Ox Last 24 Hr 97.7 F-99.0 F 65-83 16-18 136-181/67-89 93-98 Intake and Output 04/25/16 04/26/16 04/26/16 21:59 05:59 13:59 Intake Total 2210 / 2210 300 / 300 Output Total 220 / 220 285 / 285 100 / 100 Balance 1989100 / -100 Weight 134 lb Intake & Output: Intake & Output 04/25/16 04/26/16 04/26/16 21:59 05:59 13:59 Intake Total 2210 / 2210 300 / 300 Output Total 220 / 220 285 / 285 100 / 100 Balance 1989100 / -100 Weight 134 lb Intake: IV 1570 / 1570 Lactated Ringers 1,000 ml 1000 / 1000 @ 75 mls/hr IV .[id number] [facility] Rx#:[id number] Dextrose 5% in Water 500 520 / 520 ml @ 130 mls/hr IV UD PRN with Potassium Chloride 40 Meq Rx#:[id number] Oral 640 / 640 300 / 300 Output: Void Amount 220 / 220 285 / 285 100 / 100 Other: Meal Dinner Percent of Meal Consumed 25% # Voids 1 General appearance: cooperative, no acute distress Exam: alert oriented nonlabored breathing Feels better since previous day nondistended abdomen No lymphedema Medical - PN: Obj Da - Labs CBC & Chem 7: 04/26/16 06:06 04/26/16 06:06 Labs: Abnormal Lab Results 04/26/16 04/26/16 04/25/16 06:06 06:06 06:03 WBC RBC 3.22 L Hgb 10.5 L Hct 31.4 L Seg Neutrophils % Lymphocytes % Potassium 3.0 L Anion Gap BUN 27 H 28 H Creatinine 1.3 H 1.2 H Glucose 112 H 138 H Uric Acid 8.9 H Calcium 8.5 L Phosphorus 1.8 L 2.3 L GGT 38 H 37 H Lactate Dehydrogenase Total Protein 5.6 L Albumin 3.0 L Triglycerides 182 H 187 H 04/25/16 04/24/16 04/24/16 04:00 04:50 04:50 WBC 14.1 H 15.4 H RBC 3.64 L 3.90 L Hgb Hct 34.3 L Seg Neutrophils % 81 H 83 H Lymphocytes % 12 L Potassium Anion Gap 19.0 H BUN 29 H Creatinine 1.3 H Glucose 133 H Uric Acid 9.9 H Calcium Phosphorus 2.5 L GGT 38 H Lactate Dehydrogenase 264 H Total Protein Albumin Triglycerides 200 H Meds: Medications Diagnostic Test (Pha) (Accu-Chek) 1 each FS BIDAC [facility] Last Admin: 04/26/16 09:31 Dose: 1 each Hydralazine HCl (Apresoline) 10 - 20 mg IV Q4-6HP PRN PRN Reason: Hypertension Last Admin: 04/24/16 14:30 Dose: 10 mg Hydrochlorothiazide (Oretic) 25 mg PO DAILY [facility] Last Admin: 04/26/16 09:30 Dose: 25 mg Lactated Ringer's (Lactated Ringers) 1,000 mls @ 75 mls/hr IV .[id number] [facility] Last Admin: 04/26/16 05:41 Dose: Not Given Potassium Chloride 40 meq/ (Dextrose) 520 mls @ 130 mls/hr IV UD PRN PRN Reason: K+ = or < 3.5 Last Infusion: 04/25/16 21:00 Dose: Infused Magnesium Sulfate (Magnesium Sulfate) 2 gm in 50 mls @ 50 mls/hr IV UD PRN PRN Reason: Mag < or = 1.7 Last Infusion: 04/25/16 21:01 Dose: Infused Olmesartan (Benicar) 40 mg PO DAILY [facility] Last Admin: 04/26/16 09:31 Dose: 40 mg Ondansetron HCl (Zofran) 4 mg IV Q4HP PRN PRN Reason: Nausea And Vomiting Last Admin: 04/25/16 06:52 Dose: 4 mg Potassium Chloride (Potassium Chloride) 15 meq PT BIDCC [facility] Last Admin: 04/26/16 09:30 Dose: 15 meq Potassium/Phosphorus/Sodium (Neutra Phos) 2 packet PO BID [facility] Last Admin: 04/26/16 09:30 Dose: 2 packet Promethazine HCl (Phenergan) 12.5 mg IV Q4-6HP PRN PRN Reason: Nausea And Vomiting Last Admin: 04/25/16 09:09 Dose: 12.5 mg Ropinirole HCl (Requip) 4 mg PO HS [facility] Last Admin: 04/25/16 21:11 Dose: 4 mg Sodium Chloride (Saline Flush) 10 ml IV Q8 [facility] Last Admin: 04/26/16 05:41 Dose: Not Given Sodium Chloride (Saline Flush) 10 ml IV UD PRN PRN Reason: Protocol Throat Lozenges (Cepacol) 1 lozenge PO PRN PRN PRN Reason: Sore Throat Tramadol HCl (Ultram) 50 mg PO Q6HP PRN PRN Reason: Pain Medical - PN: A/P - Time Spent With Patient Total time spent is greater than 50% in coordination of care (as documented) at patient's floor/unit and/or counseling patient: 15 - 24 minutes (1) Gastroenteritis Status: Acute Assessment and plan: * Acute gastroenteritis with severe diarrhea-possible viral etiology. Negative cultures/stool studies to date. fully resolved * Acute renal failure clinically improving * hypokalemia-potassium at 3. continue replacement -0 mEq oral potassium * SIRS-clinically resolved. white count normalized * severe deconditioning with weakness-Continue physical therapy/protein calorie supplements * hypomagnesemia- resolved * low phosphorus - continue oral replacement * History of hypertension continue home meds . plan * continue nutritional supplements/physical therapy * possible swing bed if continues to require inpatient rehabilitation else discharge home in 24-48 hours Current Visit: Yes Medical - PN: Qual - VTE Deep Vein Thrombosis/Pulmonary Embolism Present on Admission: No
[2016-04-26] MEDS: rOPINIRole 1 MG TABLET PO SCH (20:14)
[2016-04-26] MEDS ORDERED: ZOLPIDEM 5 MG TABLET PO PRN (23:31)
[2016-04-26] MEDS ORDERED: ZOLPIDEM 5 MG TABLET ONE (23:43)
[2016-04-27] MEDS: HYDROCHLOROTHIAZIDE 25 MG TABLET PO SCH (08:48)
[2016-04-27] MEDS: OLMESARTAN MEDOXOMIL 20 MG TABLET PO SCH (08:48)
[2016-04-27] MEDS: POTASSIUM CHLORIDE 20 MEQ/15 ML ML PT SCH (08:48)
[2016-04-27] MEDS: NEUTRA PHOS 1 PACKET PO SCH (08:49)
--- NOTE | 2016-04-27 09:34 | Discharge Summary ---
Medical - DS: Prov Patient information: Note initiated : 04/27/16 at 9:29 am Service Date, if different from initiated Date: [] Patient: Ana Mendez a 85 y/o F admitted on 04/22/16 for Vomiting x1.5 wks, Diarrhea, Cough/Gastroenteritis. Chief Complaint: [] Date of admission: 04/22/16 23:25 Discharge date: 04/27/16 Primary care physician: [f_Reg Prim Care Provider] Attending physician on discharge: Franck Joseph Discharging clinician: Franck Joseph Medical - DS: Meds - Discharge Medications Active and Home Medications: Home Medications glipizide 5 mg tablet 5 mg PO BIDAC #60 tab 04/28/15 [Rx Confirmed 04/24/16 Last Taken Unknown] valsartan 320 mg-hydrochlorothiazide 25 mg tablet 1 each PO DAILY #90 tab [Rx Confirmed 04/22/16 Last Taken Unknown] potassium chloride ER 10 mEq tablet,extended release 10 meq PO QAMCC #90 tab 10/24 [Rx Confirmed 04/22/16 Last Taken Unknown] Acetaminophen W/Codeine #4 [Tylenol #4] 1 tab PO HS 02/28/16 [History Confirmed 04/22/16 Last Taken Unknown] Zolpidem [Ambien] 5 mg PO HSP PRN 02/28/16 [History Confirmed 04/22/16 Last Taken Unknown] rOPINIRole HCL [Requip] 4 mg PO HS 02/28/16 [History Confirmed 04/22/16 Last Taken Unknown] traMADol [Ultram] 50 mg PO Q6HP PRN 02/28/16 [History Confirmed 04/22/16 Last Taken Unknown] Medical - DS: Hosp Hospital course: Ms Andrea hughes, is a 85 yr femlae who was admitted to the hospital with complaints of acute weakness, severe nausea, vomiting and diarrhea, and acute on chr renal failure. She was treated with IV fluids and conservative management with good response to treatment. Diarrhea- Improved during the hospiotal, Cdiff neg, norvovirus negative. Likely viral gastroenteritis vs food poisoning, self resolved, on discharge the patient is able to tolerate her meals well, no diarrhea, only soft stools. TAMANNA on CKd, patient has chronic renal dysfunctin, her creat at discharge is at her baseline. Weakness/ Fatigue- patient was weak and had debility due to her illness, declined PT here initially. She declined SNF placement, as well as Home health PT. The patient was able to walk with me and has a healthcare associate who will watch over her. She has a cane as well as walker for ambulation. On discharge the patient is progressing slowly back to baseline, able to tolerate po well, with diarrhea, nausea and vomiting resolved. No changes in her home medications have been done, she will continue same on discharge. Discharge diagnosis: Acute gastroenteritis - Time Spent with Patient Total time spent providing and/or coordinating discharge services: Less than 30 minutes Medical - DS: Exam - Constitutional Vitals: Vital Signs Temp Pulse Pulse Resp BP BP Pulse Ox 04/27/16 08:24 16 04/27/16 08:00 97.3 F L 72 16 118/55 97 04/27/16 03:53 98.6 F 83 20 147/89 96 04/26/16 23:13 98.4 F 64 20 118/70 98 04/26/16 20:10 66 20 98 04/26/16 19:27 98.3 F 66 20 117/71 98 04/26/16 15:47 98.0 F 76 16 126/78 97 04/26/16 12:00 98.2 F 86 18 100/63 96 Intake and Output 04/26/16 04/27/16 04/27/16 21:59 05:59 13:59 Intake Total 150 / 150 300 / 300 Output Total 775 / 775 Balance -625 / -625 300 / 300 Intake: Oral 150 / 150 300 / 300 Output: Void Amount 375 / 375 Urine/Stool Mix 400 / 400 Other: # Voids 1 1 # Bowel Movements 1 1 Weight 140 lb Additional comments: Constitutional; Afebrile, cooperative, alert, not in distress. Eyes- No icterus, No periorbital swelling Ears- Ext ear normal, hearing normal to conversation. Neck- Midline trachea, supple Respiratory system: Air Entry equal on both sides, No crackles or wheezing, no rhonchi. CVS- Rate rhythm regular, S1,S2 heard, no gallop, no rub. Abdomen- Soft nontender abdomen, no organomegaly, no tenderness, no guarding or rigidity, [employer]- AOOx3, moving all extremities, no focal deficit noted. was able to walk 20 yards without getting sob or tired Medical - DS: A/P - Patient/Caregiver Discharge Instructions Activity: increase activity as tolerated Diet: Consistent Carbohydrate Additional Instructions: Follow up with PCP in 7 days Go back to the ER if new symptoms, chest pain, fever or diarrhea. - Follow up Plan Follow up with: Mildred Bennett MD [Primary Care Provider] - Disposition: Home, Self-Care Prognosis: Fair Rehab Potential: Fair I certify that the patient requires SNF services: No Overall status at discharge: patient is progressing back to baseline Medical - DS: Qual - VTE Deep Vein Thrombosis/Pulmonary Embolism Present on Admission: No
== END 2016-04-27 11:10 | disposition home or self-care (01) | DRG 392 ==
LOC: ED 11:37 → MEDSUR 11:37 → UNDODISIN 04-27 11:10
PROVIDERS: ADMIT Internal Medicine; ATTEND Internal Medicine

== ENCOUNTER 2019-03-13 18:03 | Inpatient (IN) ==
[2019-03-13] MEDS ORDERED: 0.9 % SODIUM CHLORIDE 500 ML IV SCH (19:30)
--- NOTE | 2019-03-13 19:50 | Emergency Department Note ---
Wound/Laceration HPI - General Chief Complaint: Wound/Laceration Stated Complaint: Slit right wrist, has dementia Time Seen by Provider: 03/13/19 18:44 Source: patient, EMS Mode of arrival: EMS Limitations: no limitations - History of Present Illness HPI Narrative: 88-year-old female was brought in tonight for a laceration to her right wrist. Initially it sounded like she cut her wrist intentionally in an attention getting ploy as her son has a new girlfriend. She lives with her son in an RV. Anyways on further questioning however she is not sure why she did it. Another time when I asked her she says she did it on accident. She clearly has dementia or other cognitive impairment and does not recall-she is not able to give me any meaningful history or review of systems She was here last night-Dr. Gomez saw her and I reviewed that note. Apparently she was found on the floor of her RV. Her son's girlfriend called an ambulance and brought her in. She was cold and was worked up; however they did not feel that she needed admission at that time. She did not have evidence of UTI - Related Data Home Medications Medication Instructions Recorded Confirmed Pramipexole 1 mg PO HS 10/20/17 02/05/19 Previous Rx's Medication Instructions Recorded glipizide 5 mg tablet 5 mg PO BIDAC #60 tab 04/28/15 valsartan 320 1 each PO DAILY #90 tab 04/28/15 mg-hydrochlorothiazide 25 mg tablet potassium chloride 10 mEq 10 meq PO QAC #90 tab 11/17/15 tablet,extended release Ondansetron [Zofran ODT] 4 mg SL Q4-6HP PRN #10 tab 02/05/19 Oseltamivir Phosphate [Tamiflu] 75 mg PO BID #10 cap 02/05/19 Nitrofurantoin Sr [Macrobid] 100 mg PO BID #14 cap 03/10/19 Allergies Allergy/AdvReac Type Severity Reaction Status Date / Time Calcium Channel Blocking Allergy Severe Anaphylaxis Verified 03/13/19 18:03 Agents-Elliott nifedipine [From Procardia] Allergy Severe Anaphylaxis Verified 03/13/19 18:03 rofecoxib [From Vioxx] Allergy Severe Anaphylaxis Verified 03/13/19 18:03 Review of Systems Limitations: ROS unobtainable due to patients medical condition Past Medical History - Past Medical History Attestation: Yes: The following information was validated with the patient. [facility] Narrative: Family History Mother CHF (congestive heart failure) Son Diabetes mellitus Father Suicide Medical History Hypokalemia (Chronic) Trochanteric bursitis, right hip (Chronic) Lateral epicondylitis (Chronic) Diabetic peripheral neuropathy (Chronic) Peripheral vertigo (Chronic) Insomnia (Chronic) Hypertension (Chronic) Osteoarthritis of hip (Chronic) Diabetic renal disease (Chronic) Lactic acidosis (Acute) SIRS (systemic inflammatory response syndrome) (Acute) Acute renal injury (Acute) Hypovolemia dehydration (Acute) Metabolic encephalopathy (Acute) Electrolyte and fluid disorder (Acute) Dyslipidemia (Acute) Uncontrolled hypertension (Acute) Constipation (Acute) Nausea & vomiting (Acute) Strain of lumbar region (Acute) Restless leg syndrome (Acute) Chronic kidney disease, stage III (moderate) (Chronic) Abdominal pain (Acute) Hypertensive crisis (Chronic) Acute kidney injury (Chronic) Lactic acidosis (Chronic) Small bowel obstruction (Chronic) Duodenitis (Acute) Gastroenteritis (Acute) SIRS (systemic inflammatory response syndrome) (Acute) Malignant essential hypertension (Acute) Diabetes mellitus (Acute) Acute infective gastroenteritis (Chronic) Medical History Hypokalemia (Chronic) Trochanteric bursitis, right hip (Chronic) Lateral epicondylitis (Chronic) Diabetic peripheral neuropathy (Chronic) Peripheral vertigo (Chronic) Insomnia (Chronic) Hypertension (Chronic) Osteoarthritis of hip (Chronic) Diabetic renal disease (Chronic) Lactic acidosis (Acute) SIRS (systemic inflammatory response syndrome) (Acute) Acute renal injury (Acute) Hypovolemia dehydration (Acute) Metabolic encephalopathy (Acute) Electrolyte and fluid disorder (Acute) Dyslipidemia (Acute) Uncontrolled hypertension (Acute) Constipation (Acute) Nausea & vomiting (Acute) Strain of lumbar region (Acute) Restless leg syndrome (Acute) Chronic kidney disease, stage III (moderate) (Chronic) Abdominal pain (Acute) Hypertensive crisis (Chronic) Acute kidney injury (Chronic) Lactic acidosis (Chronic) Small bowel obstruction (Chronic) Duodenitis (Acute) Gastroenteritis (Acute) SIRS (systemic inflammatory response syndrome) (Acute) Malignant essential hypertension (Acute) Diabetes mellitus (Acute) Acute infective gastroenteritis (Chronic) Medical history: Reports: arthritis, DM, hyperlipidemia, hypertension, migraine, renal disease Psychiatric history: Reports: anxiety [employer] TECH[employer]ICIAN history: Reports: bilateral tubal ligation Surgical history ED: Reports: , cataract, other (shoulder) - Social History smoking status: Former smoker Alcohol use: Reports: None, Occasionally Drug use: Reports: none Physical Exam Thin elderly female no acute distress. Notable gross hearing loss. Normocephalic atraumatic. Conjunctive are clear sclerae white nonicteric. No nasal discharge or congestion. Oropharynx pink and moist. Neck is supple without lymphadenopathy or thyromegaly. Heart is regular rate and rhythm no mu rmur appreciated. Lungs are clear to auscultation bilaterally without wheezes rales rhonchi or respiratory distress. Abdomen is soft nontender nondistended. Her right wrist shows superficial cuts linear but this does not look like it full skin thickness-does not require repair at this time. She is able to move that right hand normally. Sensation is intact. Good hemostasis. Normal radial pulse. No pedal edema. She is alert and oriented but she is certainly a short- term memory deficit. She does not seem to recall why she fell yesterday, how she cut her wrist etc. Longer-term details like her to 2 hours and where she lives are intact however. She is in good spirits despite her situation Limitations: no limitations Course Vital Signs Temperature 97.0 F 03/13/19 18:03 Pulse Rate 94 H 03/13/19 18:03 Respiratory Rate 16 03/13/19 18:03 Blood Pressure 99/49 03/13/19 18:03 Pulse Oximetry (%) 100 03/13/19 18:03 Temperature 97.0 F 03/13/19 18:03 Pulse Rate 81 03/13/19 22:46 Respiratory Rate 17 03/13/19 21:49 Blood Pressure 123/56 03/13/19 22:46 Pulse Oximetry (%) 100 03/13/19 22:46 Wound/Laceration - Lab Data Lab results reviewed: Yes I reviewed the patient's lab results. Result diagrams: 03/13/19 19:45 03/13/19 19:45 Lab Results 03/13/19 03/13/19 03/13/19 Range/Units 19:45 19:45 19:45 WBC 9.5 (4.50-11.00) K/mcL RBC 3.22 L (3.59-5.38) M/mcL Hgb 10.6 L (11.2-15.7) g/dL Hct 30.5 L (34.1-44.9) % POC Hct 32.0 L (36.0-48.0) % MCV 94.7 (80.0-100.0) fL MCH 32.9 (26.0-34.0) pg MCHC 34.8 (31.0-36.0) g/dL RDW 14.4 (11.5-14.5) % Plt Count 233 (140-440) K/mcL MPV 11.1 H (7.4-10.4) fL Gran % 81.6 H (38.0-78.0) % Lymph % (Auto) 11.7 L (15.5-49.0) % [place] % (Auto) 5.9 (1.0-12.0) % Eos % (Auto) 0.1 (0.0-7.0) % Baso % (Auto) 0.2 (0.0-2.0) % Gran # 7.76 (1.80-8.00) K/mcL Lymph # (Auto) 1.11 L (1.50-4.80) K/mcL [place] # (Auto) 0.56 (0.10-0.90) K/mcL Eos # (Auto) 0.01 (0.00-0.70) K/mcL Baso # (Auto) 0.02 (0.00-0.30) K/mcL VBG Lactic Acid 1.0 (0.5-2.0) mmol/L POC Sodium 139 (133-145) mmol/L Sodium 135 (133-145) mmol/L POC Potassium 3.3 (3.3-5.1) mmol/L Potassium 3.5 (3.3-5.1) mmol/L POC Chloride 114 H (96-108) mmol/L Chloride 105 (96-108) mmol/L Carbon Dioxide 14 L (22-30) mmol/L POC Total CO2 16 L (22-30) mmol/L Anion Gap 16.0 (8-16) POC BUN 38 H (8-23) mg/dl BUN 45 H (8-23) mg/dl Creatinine 1.9 H (0.6-1.1) mg/dl POC Creatinine 1.9 H (0.6-1.1) mg/dl GFR Calculation 23 Glucose 111 H (70-105) mg/dL POC Glucose 105 (70-105) mg/dL Calcium 8.6 (8.6-10.4) mg/dl POC WB Ioniz Calcium 0.94 L (1.16-1.32) mmol/L Total Bilirubin < 0.2 (0.0-1.0) mg/dL AST 110 H (0-37) U/l ALT 31 (0-40) U/l Alkaline Phosphatase 45 (39-117) U/L Ammonia (11-51) umol/L Total Creatine Kinase 2944 H (24-170) IU/L Troponin T (0-0.03) ng/ml Total Protein 6.7 (5.9-8.4) gm/dL Albumin 3.6 (3.2-5.2) gm/dL Globulin 3.1 (2.2-3.7) gm/dL Albumin/Globulin Ratio 1.2 (1.0-2.3) 03/13/19 03/13/19 Range/Units 19:45 19:45 WBC (4.50-11.00) K/mcL RBC (3.59-5.38) M/mcL Hgb (11.2-15.7) g/dL Hct (34.1-44.9) % POC Hct (36.0-48.0) % MCV (80.0-100.0) fL MCH (26.0-34.0) pg MCHC (31.0-36.0) g/dL RDW (11.5-14.5) % Plt Count (140-440) K/mcL MPV (7.4-10.4) fL Gran % (38.0-78.0) % Lymph % (Auto) (15.5-49.0) % [place] % (Auto) (1.0-12.0) % Eos % (Auto) (0.0-7.0) % Baso % (Auto) (0.0-2.0) % Gran # (1.80-8.00) K/mcL Lymph # (Auto) (1.50-4.80) K/mcL [place] # (Auto) (0.10-0.90) K/mcL Eos # (Auto) (0.00-0.70) K/mcL Baso # (Auto) (0.00-0.30) K/mcL VBG Lactic Acid (0.5-2.0) mmol/L POC Sodium (133-145) mmol/L Sodium (133-145) mmol/L POC Potassium (3.3-5.1) mmol/L Potassium (3.3-5.1) mmol/L POC Chloride (96-108) mmol/L Chloride (96-108) mmol/L Carbon Dioxide (22-30) mmol/L POC Total CO2 (22-30) mmol/L Anion Gap (8-16) POC BUN (8-23) mg/dl BUN (8-23) mg/dl Creatinine (0.6-1.1) mg/dl POC Creatinine (0.6-1.1) mg/dl GFR Calculation Glucose (70-105) mg/dL POC Glucose (70-105) mg/dL Calcium (8.6-10.4) mg/dl POC WB Ioniz Calcium (1.16-1.32) mmol/L Total Bilirubin (0.0-1.0) mg/dL AST (0-37) U/l ALT (0-40) U/l Alkaline Phosphatase (39-117) U/L Ammonia 10 L (11-51) umol/L Total Creatine Kinase (24-170) IU/L Troponin T 0.01 (0-0.03) ng/ml Total Protein (5.9-8.4) gm/dL Albumin (3.2-5.2) gm/dL Globulin (2.2-3.7) gm/dL Albumin/Globulin Ratio (1.0-2.3) Urinalysis [id number] dipstick today shows small amount of blood present gravity 1.020 small amount of ketones - Radiology Data Radiology results reviewed: Yes I reviewed the patient's radiology results. Chest x-ray shows no acute infiltrate. Compared with yesterday's I do not see any new findings - EKG Data EKG attestation: Yes I reviewed and interpreted this EKG., Yes There are no EKG findings of acute coronary syndrome, Yes This EKG will be read by endocrinologist EKG results narrative: PVCs noted with lots of artifact Disposition Pt seen by FIELD IDENTIFICATION SPECIALIST/PA only: No Clinical Impression: Dehydration Laceration of wrist without complication Qualifiers: Encounter type: initial encounter Laterality: right Qualified Code(s): S61.511A - Laceration without foreign body of right wrist, initial encounter Injury by cutting and piercing instruments, undetermined intent Qualifiers: Encounter type: initial encounter Qualified Code(s): Y28.9XXA - Contact with unspecified sharp object, undetermined intent, initial encounter Rhabdomyolysis Qualifiers: Rhabdomyolysis type: non-traumatic Qualified Code(s): M62.82 - Rhabdomyolysis Summary: Work-up ordered for altered mental status Q saw patient and felt that she was not a danger to herself or others. Contracted for safety-they released her from a psychiatric standpoint. Wrist wound does not require repair. This is bandaged Laboratory shows mild rhabdomyolysis and increased creatinine consistent with dehydration. This is likely secondary to yesterday's fall and laying on the cold floor for a prolonged time. Unfortunately she is a poor historian and I am unable to sort out what exactly happened-again limited history and no significant review of systems. I discussed the case with our hospitalist Dr. Luke, he agreed to come see the patient Disposition: Xfer As Inpt ([facility]) Condition: Fair Referrals: Clarisse Crisostomo ARNP [Primary Care Provider] -
[2019-03-13 19:57] LABS: POC Blood Urea Nitrogen 38 mg/dl (8-23); POC CO2 16 mmol/L (22-30); POC Calcium, Ionized 0.94 mmol/L (1.16-1.32); POC Chloride 114 mmol/L (96-108); POC Creatinine 1.9 mg/dl (0.6-1.1); POC Glucose, Random 105 mg/dL (70-105); POC Potassium 3.3 mmol/L (3.3-5.1); POC Sodium 139 mmol/L (133-145)
[2019-03-13 20:36] LABS: Basophils # (Auto) 0.02 K/mcL (0.00-0.30); Basophils % (Auto) 0.2 % (0.0-2.0); Eosinophils # (Auto) 0.01 K/mcL (0.00-0.70); Eosinophils % (Auto) 0.1 % (0.0-7.0); Granulocytes % (Auto) 81.6 % (38.0-78.0); Hematocrit 30.5 % (34.1-44.9); Hemoglobin 10.6 g/dL (11.2-15.7); Lymphocytes # (Auto) 1.11 K/mcL (1.50-4.80); Lymphocytes % (Auto) 11.7 % (15.5-49.0); Mean Cell Volume 94.7 fL (80.0-100.0); Mean Corpuscular HGB Conc 34.8 g/dL (31.0-36.0); Mean Platelet Volume 11.1 fL (7.4-10.4); Monocytes # (Auto) 0.56 K/mcL (0.10-0.90); Monocytes % (Auto) 5.9 % (1.0-12.0); Platelet Count 233 K/mcL (140-440); RBC 3.22 M/mcL (3.59-5.38); Red Cell Distribution Width 14.4 % (11.5-14.5); WBC 9.5 K/mcL (4.50-11.00)
[2019-03-13] MEDS ORDERED: 0.9 % SODIUM CHLORIDE 1,000 ML IV ONE (20:39)
[2019-03-13 20:50] LABS: ALT/SGPT 31 U/l (0-40); AST/SGOT 110 U/l (0-37); Albumin 3.6 gm/dL (3.2-5.2); Albumin/Globulin Ratio 1.2 (1.0-2.3); Alkaline Phosphatase 45 U/L (39-117); Bilirubin,Total < 0.2 mg/dL (0.0-1.0); Calcium 8.6 mg/dl (8.6-10.4); Chloride 105 mmol/L (96-108); Globulin 3.1 gm/dL (2.2-3.7); Glomerular Filtration Rate 23; Glucose 111 mg/dL (70-105)
[2019-03-13 20:51] LABS: Blood Urea Nitrogen 45 mg/dl (8-23); Carbon Dioxide 14 mmol/L (22-30)
[2019-03-13 21:14] LABS: Creatine Kinase 2944 IU/L (24-170)
--- NOTE | 2019-03-13 22:48 | Internal Med History&Physical ---
Medical - H&P: [facility] Patient information: Note initiated : 03/13/19 at 10:42 pm Service Date, if different from initiated Date: [] Patient: Ana Mendez a 88 y/o F admitted on for Slit right wrist, has dementia. Chief Complaint: [] History of present illness: Ms. Mendez is a 88 year old F Who presents the ED after laceration of the right wrist. History is obtained from charts as sounds like patient has a baseline dementia and is a poor historian. Story is convoluted like do not have much of a history. Per notes she came in on the for psych symptoms and some small laceration of the right rich wrist which she was confused and did not know if they are self-inflicted patient could not give history. She was evaluated by Bessy WILL and was cleared and sent home. The second she came back in for weakness and recently diagnosed urinary tract infection. Patient was found on the floor of her trailer. The [id number] called the ambulance. He was given IV hydration and discharged home. Patient presents back today for laceration to right wrist. Patient does not recall falling or lying on the ground yesterday. Patient reported to triage nurse that possible intention of hurting self but to rule else she has been denying it. To me she denied wanting to hurt herself think she accidentally cut it while reaching for some dishes. -He was again cleared by isac WILL and deemed safe to go home. However she was found to have elevated CPK and thus admission was requested. Creatinine was elevated above baseline mildly. Review of Systems: Pertinent positives above. Also complained of occasional headaches. Denies fever/chills/nausea/vomiting/chest or abdominal pain/cough/dyspnea/diarrhea. Otherwise see above. Medical - H&P: H Medical history: Medical History Hypokalemia (Chronic) Trochanteric bursitis, right hip (Chronic) Lateral epicondylitis (Chronic) Diabetic peripheral neuropathy (Chronic) Peripheral vertigo (Chronic) Insomnia (Chronic) Hypertension (Chronic) Osteoarthritis of hip (Chronic) Diabetic renal disease (Chronic) Lactic acidosis (Acute) SIRS (systemic inflammatory response syndrome) (Acute) Acute renal injury (Acute) Hypovolemia dehydration (Acute) Metabolic encephalopathy (Acute) Electrolyte and fluid disorder (Acute) Dyslipidemia (Acute) Uncontrolled hypertension (Acute) Constipation (Acute) Nausea & vomiting (Acute) Strain of lumbar region (Acute) Restless leg syndrome (Acute) Chronic kidney disease, stage III (moderate) (Chronic) Abdominal pain (Acute) Hypertensive crisis (Chronic) Acute kidney injury (Chronic) Lactic acidosis (Chronic) Small bowel obstruction (Chronic) Duodenitis (Acute) Gastroenteritis (Acute) SIRS (systemic inflammatory response syndrome) (Acute) Malignant essential hypertension (Acute) Diabetes mellitus (Acute) Acute infective gastroenteritis (Chronic) Family History Mother CHF (congestive heart failure) Son Diabetes mellitus Father Suicide Social History States she used chewing tobacco the past Denies alcohol use Ambulates with a cane Lives with her son. Medical - H&P: Meds Home Medications Medication Instructions Recorded Confirmed Type glipizide 5 mg tablet 5 mg PO BIDAC #60 tab 04/28/15 02/05/19 Rx valsartan 320 1 each PO DAILY #90 tab 04/28/15 02/05/19 Rx mg-hydrochlorothiazide 25 mg tablet potassium chloride 10 mEq 10 meq PO QAC #90 tab 11/17/15 02/05/19 Rx tablet,extended release Pramipexole 1 mg PO HS 10/20/17 02/05/19 History Ondansetron [Zofran ODT] 4 mg SL Q4-6HP PRN #10 tab 02/05/19 Rx Oseltamivir Phosphate [Tamiflu] 75 mg PO BID #10 cap 02/05/19 Rx Nitrofurantoin Sr [Macrobid] 100 mg PO BID #14 cap 03/10/19 Rx Allergies Allergy/AdvReac Type Severity Reaction Status Date / Time Calcium Channel Blocking Allergy Severe Anaphylaxis Verified 03/13/19 18:03 Agents-Elliott nifedipine [From Procardia] Allergy Severe Anaphylaxis Verified 03/13/19 18:03 rofecoxib [From Vioxx] Allergy Severe Anaphylaxis Verified 03/13/19 18:03 Medical - H&P: Exam - Constitutional Vitals: Temp Pulse Resp BP Pulse Ox 97.0 F 79 17 116/53 100 03/13/19 18:03 03/13/19 22:01 03/13/19 21:49 03/13/19 22:01 03/13/19 22:01 Exam: General: Alert, Awake, No acute Distress, obese Eyes/N/T: EOMI, PERRL, dry MM Head/Neck: neck supple, normocephalic atraumatic CV: RRR, No murmurs, normal s1/s2 Pulm: Clear b/l, no wheezing/rhonchi/rales Abd: soft, nontender, +BS x4 Ext: no clubbing/cyanosis/edema Neuro: Alert, no focal deficits, moves all extremities, CN 2-12 grossly intact, symmetrical strength b/l upper/lower, sensations intact b/l upper/lower Skin: warm/dry Medical - H&P: Reslt - Labs CBC & Chem 7: 03/13/19 19:45 03/13/19 19:45 Labs: Short CBC 03/13/19 Range/Units 19:45 WBC 9.5 (4.50-11.00) K/mcL Hgb 10.6 L (11.2-15.7) g/dL Hct 30.5 L (34.1-44.9) % Plt Count 233 (140-440) K/mcL BMP 03/13/19 19:45 Sodium 135 Potassium 3.5 Chloride 105 Carbon Dioxide 14 L BUN 45 H Creatinine 1.9 H Glucose 111 H Calcium 8.6 Cardiac Enzymes 03/13/19 03/13/19 Range/Units 19:45 19:45 Total Creatine Kinase 2944 H (24-170) IU/L Troponin T 0.01 (0-0.03) ng/ml Liver Function 03/13/19 Range/Units 19:45 Total Bilirubin < 0.2 (0.0-1.0) mg/dL AST 110 H (0-37) U/l ALT 31 (0-40) U/l Alkaline Phosphatase 45 (39-117) U/L Albumin 3.6 (3.2-5.2) gm/dL Medical - H&P: A/P - Narrative A/P Narrative: A: *Rhabdomyolysis: 2/[address] *TAMANNA on CKD IIIb: follows with dr penny *Anemia, chronic: *DM: *HTN: *Dementia: P: -bicarb gtt -f/u renal fxn -monitor UOP -hold ARB/HCTZ -f/u CPK -SSI -pt/ot -ppx: heparin
[2019-03-13] MEDS ORDERED: SODIUM BICARBONATE 50 MEQ/50 ML VIAL IV ONE (23:55)
[2019-03-13] MEDS ORDERED: MAGNESIUM SULFATE 2 GM/50 ML BAG IV PRN (23:55)
[2019-03-13] MEDS ORDERED: IPRATROPIUM/ALBUTEROL 3 ML AMPUL.NEB NEB PRN (23:55)
[2019-03-13] MEDS ORDERED: ONDANSETRON 4 MG/2 ML VIAL IV PRN (23:55)
[2019-03-13] MEDS ORDERED: POTASSIUM CHLORIDE 40 MEQ in DEXTROSE 5% IN WATER 500 ML IV PRN (23:55)
[2019-03-13] MEDS ORDERED: SENNOSIDES 1 TABLET PO PRN (23:55)
[2019-03-13] MEDS ORDERED: POTASSIUM CHLORIDE 20 MEQ TABLET PO PRN ×2 (23:55)
[2019-03-13] MEDS ORDERED: POLYETHYLENE GLYCOL 3350 17 GM PACKET PO PRN (23:55)
[2019-03-14] MEDS ORDERED: SODIUM BICARBONATE 50 MEQ/50 ML VIAL ONE (00:28)
--- NOTE | 2019-03-14 04:14 | XRay Report ---
CLINICAL INFORMATION: altered mental status COMPARISON: 03/12/2019 FINDINGS: Heart is normal in size. Mitral annular calcification noted. Mediastinum and pulmonary vessels are unremarkable. Minor scattered scarring or atelectasis present in both mid and lower lung jung. No effusions IMPRESSION: Negative Interpreted and Authenticated by: Tye Mooney 03/14/19
[2019-03-14] MEDS: 0.9 % SODIUM CHLORIDE 10 ML SYRINGE IV SCH ×3 (05:34→20:12)
--- NOTE | 2019-03-14 07:15 | Internal Med Progress Note ---
Medical - PN: Subj Patient information: Note initiated : 03/14/19 at 7:12 am Service Date, if different from initiated Date: [] Patient: Ana Mendez a 88 y/o F admitted on 03/13/19 for Slit right wrist, has dementia. Chief Complaint: [] Interval history: Ms. Mendez is a 88 year old F Who presents the ED after laceration of the right wrist. History is obtained from charts as sounds like patient has a baseline dementia and is a poor historian. Story is convoluted like do not have much of a history. Per notes she came in on the for psych symptoms and some small laceration of the right rich wrist which she was confused and did not know if they are self-inflicted patient could not give history. She was evaluated by Bessy WILL and was cleared and sent home. The second she came back in for weakness and recently diagnosed urinary tract infection. Patient was found on the floor of her trailer. The [id number] called the ambulance. He was given IV hydration and discharged home. Patient presents back today for laceration to right wrist. Patient does not recall falling or lying on the ground yesterday. Patient reported to triage nurse that possible intention of hurting self but to rule else she has been denying it. To me she denied wanting to hurt herself think she accidentally cut it while reaching for some dishes. -He was again cleared by isac WILL and deemed safe to go home. However she was found to have elevated CPK and thus admission was requested. Creatinine was elevated above baseline mildly. 1/4 Bicarb drip running. CPK proving. Low electrolytes. No overnight events. Complains of occasional cough. Review of Systems: denies headache/fever/chills/nausea/vomiting/chest or abdominal pain/diarrhea. Otherwise see above. - Constitutional Vitals: Vital Signs Temp Pulse Resp BP Pulse Ox 98.1 F 85 18 103/58 99 03/14/19 03:09 03/14/19 03:09 03/14/19 03:09 03/14/19 03:09 03/14/19 03:09 Period Temp Pulse Resp BP Sys/Pacheco Pulse Ox Last 24 Hr 97.0 F-98.1 F 72-94 16-21 67-128/27-67 97-100 Intake and Output 01/05/2803/14/19 03/14/19 21:59 05:59 13:59 Intake Total 1880 Output Total 1 Balance 1879 Weight 73.936 kg 63.503 kg Intake & Output: Intake & Output 03/13/19 03/14/19 03/14/19 21:59 05:59 13:59 Intake Total 1880 Output Total 1 Balance 1879 Weight 73.936 kg 63.503 kg Intake: IV 1000 Sodium Chloride 0.9% 1,000 ml @ 1000 Wide Open IV BOLUS ONE Rx#: [id number] Oral 880 Output: # of times incontinent of urine 1 Other: Meal Nourishment/Supplement Percent of Meal Consumed 100% Feeding Ability Assist with Tray Set Up Exam: General: Alert, Awake, No acute Distress, obese Eyes/N/T: EOMI, Head/Neck: neck supple, CV: RRR, No murmurs, Pulm: Clear b/l, no wheezing/rhonchi/rales Abd: soft, nontender, +BS x4 Ext: no clubbing/cyanosis/edema Neuro: Alert, no focal deficits, moves all extremities, Skin: warm/dry Medical - PN: Obj Da - Labs CBC & Chem 7: 03/13/19 19:45 03/14/19 06:16 Labs: Abnormal Lab Results 03/13/19 03/13/19 03/13/19 19:45 19:45 19:45 RBC 3.22 L Hgb 10.6 L Hct 30.5 L POC Hct 32.0 L MPV 11.1 H Gran % 81.6 H Lymph % (Auto) 11.7 L Lymph # (Auto) 1.11 L POC Chloride 114 H Carbon Dioxide 14 L POC Total CO2 16 L POC BUN 38 H BUN 45 H Creatinine 1.9 H POC Creatinine 1.9 H Glucose 111 H POC WB Ioniz Calcium 0.94 L AST 110 H Ammonia 10 L Total Creatine Kinase 2944 H Meds: Medications Acetaminophen (Tylenol) 650 mg PO Q6HP PRN PRN Reason: PAIN/FEVER > 101 Albuterol/Ipratropium (Duoneb) 3 ml NEB Q4HP PRN PRN Reason: Shortness Of Breath Docusate Sodium (Colace) 100 mg PO BID CARMEN Heparin Sodium (Porcine) (Heparin) 5,000 unit SQ Q12 CARMEN Potassium Chloride 40 meq/ (Dextrose) 520 mls @ 130 mls/hr IV UD PRN PRN Reason: Potassium < 3 Magnesium Sulfate (Magnesium Sulfate) 2 gm in 50 mls @ 50 mls/hr IV UD PRN PRN Reason: Magnesium </= 1.6 Ondansetron HCl (Zofran) 4 mg IV Q4HP PRN PRN Reason: Nausea And Vomiting Polyethylene Glycol (Miralax) 17 gm PO DAILYP PRN PRN Reason: Constipation Potassium Chloride (Kdur) 40 meq PO UD PRN PRN Reason: Potssium is 3-3.5 Potassium Chloride (Kdur) 40 meq PO UD PRN PRN Reason: Potassium < 3 Senna (Senokot) 2 tab PO DAILYP PRN PRN Reason: Constipation Sodium Bicarbonate (Sodium Bicarbonate Vial) 0 meq IV ONCE ONE Stop: 03/13/19 23:56 Last Admin: 03/14/19 00:45 Dose: 150 meq Documented by: Sodium Chloride (Saline Flush) 10 ml IV Q8 CARMEN Last Admin: 03/14/19 05:34 Dose: Not Given Documented by: Medical - PN: A/P - Time Spent With Patient Total time spent is greater than 50% in coordination of care (as documented) at patient's floor/unit and/or counseling patient: - Narrative A/P Narrative: A: *Rhabdomyolysis: 2/[address] *TAMANNA on CKD IIIb: follows with dr penny *Anemia, chronic: *DM: *HTN: *Dementia: P: -bicarb gtt -f/u renal fxn -monitor UOP -hold ARB/HCTZ -f/u CPK -SSI -pt/ot -ppx: heparin Medical - PN: Qual - Stroke Symptom Onset Unknown: No - VTE Deep Vein Thrombosis/Pulmonary Embolism Present on Admission: No
[2019-03-14 07:34] LABS: ALT/SGPT 27 U/l (0-40); AST/SGOT 85 U/l (0-37); Albumin/Globulin Ratio 1.2 (1.0-2.3); Alkaline Phosphatase 40 U/L (39-117); Bilirubin,Direct < 0.2 mg/dL (0.0-0.3); Bilirubin,Total < 0.2 mg/dL (0.0-1.0); Blood Urea Nitrogen 49 mg/dl (8-23); Chloride 103 mmol/L (96-108); Globulin 2.5 gm/dL (2.2-3.7); Glomerular Filtration Rate 27; Glucose 106 mg/dL (70-105); Lactate Dehydrogenase 302 U/L (94-250); Triglycerides 170 mg/dl (<150); Uric Acid 3.9 mg/dL (2.5-8.0)
[2019-03-14 07:49] LABS: Carbon Dioxide 19 mmol/L (22-30); Creatine Kinase 1765 IU/L (24-170); Phosphorous 1.7 mg/dL (2.7-4.5)
[2019-03-14] MEDS ORDERED: POTASSIUM CHLORIDE 20 MEQ TABLET PO ONE ×2 (08:00→19:00)
[2019-03-14] MEDS ORDERED: PHOSPHORUS 250 MG TABLET PO ONE (08:00)
[2019-03-14] MEDS ORDERED: POTASSIUM PHOSPHATE 40 MEQ in DEXTROSE 5% IN WATER 500 ML IV ONE (08:00)
[2019-03-14] MEDS: SODIUM BICARBONATE VIAL 150 MEQ in WATER FOR INJECTION,STERILE 850 ML IV SCH ×2 (09:15→09:32)
[2019-03-14] MEDS: DOCUSATE SODIUM 100 MG CAPSULE PO SCH ×2 (09:30→20:12)
[2019-03-14] MEDS: HEPARIN 5,000 UNIT/ML VIAL SQ SCH ×2 (09:31→20:11)
--- NOTE | 2019-03-14 10:30 | Discharge Summary ---
Medical - DS: Prov Patient information: Note initiated : 03/14/19 at 10:28 am Service Date, if different from initiated Date: [] Patient: Ana Mendez a 88 y/o F admitted on 03/13/19 for Slit right wrist, has dementia. Chief Complaint: [] Date of admission: 03/13/19 23:47 Discharge date: 03/16/19 Primary care physician: Clarisse Crisostomo Consults: 03/14/19 07:38 Consult to Physician [CONS] Routine Comment: Consulting Provider: Sal Luke Reason For Exam: Physician to Consult Medical - DS: Meds - Discharge Medications Active and Home Medications: Home Medications glipizide 5 mg tablet 5 mg PO BIDAC #60 tab 04/28/15 [Rx Confirmed 02/05/19 Last Taken 10/19/17] valsartan 320 mg-hydrochlorothiazide 25 mg tablet 1 each PO DAILY #90 tab 04/28/15 [Rx Confirmed 02/05/19 Last Taken 10/19/17] potassium chloride 10 mEq tablet,extended release 10 meq PO QAMCC #90 tab 11/17/15 [Rx Confirmed 02/05/19 Last Taken 10/19/17] Pramipexole 1 mg PO HS 10/20/17 [History Confirmed 02/05/19 Last Taken 10/19/17] Ondansetron [Zofran ODT] 4 mg SL Q4-6HP PRN #10 tab 02/05/19 [Rx Last Taken Unknown] Oseltamivir Phosphate [Tamiflu] 75 mg PO BID #10 cap 02/05/19 [Rx Last Taken Unknown] Nitrofurantoin Sr [Macrobid] 100 mg PO BID #14 cap 03/10/19 [Rx Last Taken Unknown] Medical - DS: Hosp Hospital Course: Ms. Mendez is a 88 year old F Who presents the ED after laceration of the right wrist. History is obtained from charts as sounds like patient has a baseline dementia and is a poor historian. Story is convoluted like do not have much of a history. Per notes she came in on the for psych symptoms and some small laceration of the right rich wrist which she was confused and did not know if they are self-inflicted patient could not give history. She was evaluated by Bessy and was cleared and sent home. The second she came back in for weakness and recently diagnosed urinary tract infection. Patient was found on the floor of her trailer. The [id number] called the ambulance. He was given IV hydration and discharged home. Patient presents back today for laceration to right wrist. Patient does not rec all falling or lying on the ground yesterday. Patient reported to triage nurse that possible intention of hurting self but to rule else she has been denying it. To me she denied wanting to hurt herself think she accidentally cut it while reaching for some dishes. -He was again cleared by isac and deemed safe to go home. However she was found to have elevated CPK and thus admission was requested. Creatinine was elevated above baseline mildly. 1/ Bicarb drip running. CPK proving. Low electrolytes. No overnight events. Complains of occasional cough. / Patient doing well. Feeling better. No new complaints other than wanting to sleep with her dogs. Patient wants to go to rehab instead of back home. CPK and renal function improving / Patient doing well and again no overnight events. Renal function and rhabdo laboratory significantly improved A: *Rhabdomyolysis: 2/[address] *TAMANNA on CKD IIIb: follows with dr penny *Anemia, chronic: *DM: *HTN: *Dementia: Discharge diagnosis: Rhabdomyolysis acute kidney injury anemia diabetes hypertension dementia - Time Spent with Patient Total time spent providing and/or coordinating discharge services: Greater than 30 minutes Medical - DS: Exam - Constitutional Vitals: Vital Signs Temp Pulse Pulse Resp BP BP Pulse Ox 03/14/19 07:00 98.3 F 85 16 100/58 97 03/14/19 03:09 98.1 F 85 18 103/58 99 03/13/19 23:55 97.4 F 76 18 124/57 97 03/13/19 23:47 97.4 F 76 18 124/57 97 03/13/19 23:41 80 99 03/13/19 23:31 83 119/53 99 03/13/19 23:16 80 124/57 99 03/13/19 23:01 125/55 03/13/19 22:46 81 123/56 100 03/13/19 22:45 79 100 03/13/19 22:33 81 122/51 100 03/13/19 22:16 77 122/48 100 03/13/19 22:01 79 116/53 100 03/13/19 21:49 85 17 100 03/13/19 21:46 81 20 127/50 99 03/13/19 21:31 81 19 128/56 100 03/13/19 21:21 79 21 90/65 100 03/13/19 21:15 81 90/65 100 03/13/19 20:00 83 94/67 98 03/13/19 19:54 79 94/67 100 03/13/19 19:53 80 94/67 100 03/13/19 19:32 79 98 03/13/19 19:31 80 112/62 97 03/13/19 19:16 115/55 03/13/19 19:05 117/57 03/13/19 19:01 82 74/41 99 03/13/19 18:48 92 H 90/61 100 03/13/19 18:46 83 67/27 100 03/13/19 18:31 86/54 03/13/19 18:18 86 110/55 100 03/13/19 18:15 72 18 03/13/19 18:03 97.0 F 94 H 16 99/49 100 Intake and Output 03/13/19 03/14/19 03/14/19 21:59 05:59 13:59 Intake Total 1880 35 Output Total 1 Balance 1879 35 Intake: IV 1000 35 Sodium Chloride 0.9% 1,000 ml @ 1000 Wide Open IV [facility] Rx#: [id number] Sodium Bicarbonate Vial 150 Meq 35 In Water 850 ml @ 125 mls/hr IV Q8H [facility] Rx#:[id number] Oral 880 Output: # of times incontinent of urine 1 Other: Meal Nourishment/Supplement Percent of Meal Consumed 100% Feeding Ability Assist with Tray Set Up Weight 73.936 kg 63.503 kg Medical - DS: Data Labs on day of discharge: Labs from last 24 hours 03/14/19 03/13/19 03/13/19 06:16 19:45 19:45 WBC RBC Hgb Hct POC Hct MCV MCH MCHC RDW Plt Count MPV Gran % Lymph % (Auto) [place] % (Auto) Eos % (Auto) Baso % (Auto) Gran # Lymph # (Auto) [place] # (Auto) Eos # (Auto) Baso # (Auto) VBG Lactic Acid POC Sodium Sodium 139 POC Potassium Potassium 2.8 L* POC Chloride Chloride 103 Carbon Dioxide 19 L POC Total CO2 Anion Gap 17.0 H POC BUN BUN 49 H Creatinine 1.7 H POC Creatinine GFR Calculation 27 Glucose 106 H POC Glucose Uric Acid 3.9 Calcium 8.0 L POC WB Ioniz Calcium Phosphorus 1.7 L Magnesium 1.7 Total Bilirubin < 0.2 Direct Bilirubin < 0.2 GGT 18 AST 85 H ALT 27 Alkaline Phosphatase 40 Ammonia 10 L Lactate Dehydrogenase 302 H Total Creatine Kinase 1765 H Troponin T 0.01 Total Protein 5.5 L Albumin 3.0 L Globulin 2.5 Albumin/Globulin Ratio 1.2 Triglycerides 170 H 03/13/19 03/13/19 03/13/19 19:45 19:45 19:45 WBC 9.5 RBC 3.22 L Hgb 10.6 L Hct 30.5 L POC Hct 32.0 L MCV 94.7 MCH 32.9 MCHC 34.8 RDW 14.4 Plt Count 233 MPV 11.1 H Gran % 81.6 H Lymph % (Auto) 11.7 L [place] % (Auto) 5.9 Eos % (Auto) 0.1 Baso % (Auto) 0.2 Gran # 7.76 Lymph # (Auto) 1.11 L [place] # (Auto) 0.56 Eos # (Auto) 0.01 Baso # (Auto) 0.02 VBG Lactic Acid 1.0 POC Sodium 139 Sodium 135 POC Potassium 3.3 Potassium 3.5 POC Chloride 114 H Chloride 105 Carbon Dioxide 14 L POC Total CO2 16 L Anion Gap 16.0 POC BUN 38 H BUN 45 H Creatinine 1.9 H POC Creatinine 1.9 H GFR Calculation 23 Glucose 111 H POC Glucose 105 Uric Acid Calcium 8.6 POC WB Ioniz Calcium 0.94 L Phosphorus Magnesium Total Bilirubin < 0.2 Direct Bilirubin GGT AST 110 H ALT 31 Alkaline Phosphatase 45 Ammonia Lactate Dehydrogenase Total Creatine Kinase 2944 H Troponin T Total Protein 6.7 Albumin 3.6 Globulin 3.1 Albumin/Globulin Ratio 1.2 Triglycerides Medical - DS: A/P - Patient/Caregiver Discharge Instructions Activity: increase activity as tolerated Diet: Consistent Carbohydrate - Follow up Plan Follow up with: Clarisse Crisostomo ARNP [Primary Care Provider] - Disposition: Xfer SNF Prognosis: Fair Rehab Potential: Fair I certify that the patient requires SNF services: Yes Overall status at discharge: patient is progressing back to baseline Medical - DS: Qual - VTE Deep Vein Thrombosis/Pulmonary Embolism Present on Admission: No
[2019-03-14 13:16] LABS: Appearance,Urine CLEAR; Bacteria,Urine 0 /hpf (0); Bilirubin,Urine NEG (NEG); Color,Urine YELLOW; Culture Indicated,Urine NO; Glucose,Urine (UA) NEGATIVE (NEG); Ketones,Urine NEG (NEG); Leukocyte Esterase,Urine 500 /uL (NEG); Mucus,Urine FEW /hpf (0); Nitrate,Urine NEG (NEG); Protein,Urine 30 mg/dL (NEG); Specific Gravity,Urine 1.016 (1.000-1.035); Urine Blood 0.03 mg/dL (<0.03); Urine RBC < 1 /hpf (0-1); Urine Squamous Epithelial Cell 3 /hpf (0-4); Urine Transitional Epi Cells < 1 /hpf (0-2); Urine WBC 103 /hpf (0-4); Urobilinogen,Urine NEG (NEG)
[2019-03-14 17:45] LABS: Chloride 97 mmol/L (96-108)
[2019-03-14 17:49] LABS: Carbon Dioxide 24 mmol/L (22-30); Phosphorous 4.2 mg/dL (2.7-4.5)
[2019-03-14] MEDS: ACETAMINOPHEN 325 MG TABLET PO PRN (18:58)
[2019-03-14] MEDS: 0.9 % SODIUM CHLORIDE 1,000 ML IV SCH (19:05)
[2019-03-15] MEDS: 0.9 % SODIUM CHLORIDE 10 ML SYRINGE IV SCH ×3 (06:16→21:14)
[2019-03-15 07:23] LABS: Creatine Kinase 1090 IU/L (24-170)
[2019-03-15 07:24] LABS: ALT/SGPT 25 U/l (0-40); AST/SGOT 65 U/l (0-37); Albumin 2.9 gm/dL (3.2-5.2); Albumin/Globulin Ratio 1.3 (1.0-2.3); Alkaline Phosphatase 34 U/L (39-117); Bilirubin,Direct < 0.2 mg/dL (0.0-0.3); Bilirubin,Total < 0.2 mg/dL (0.0-1.0); Blood Urea Nitrogen 43 mg/dl (8-23); Calcium 7.7 mg/dl (8.6-10.4); Carbon Dioxide 25 mmol/L (22-30); Chloride 104 mmol/L (96-108); Globulin 2.2 gm/dL (2.2-3.7); Glomerular Filtration Rate 34; Glucose 95 mg/dL (70-105); Lactate Dehydrogenase 291 U/L (94-250); Triglycerides 136 mg/dl (<150)
--- NOTE | 2019-03-15 07:46 | Internal Med Progress Note ---
Medical - PN: Subj Patient information: Note initiated : 03/15/19 at 7:42 am Service Date, if different from initiated Date: [] Patient: Ana Mendez a 88 y/o F admitted on 03/13/19 for Slit right wrist, has dementia. Chief Complaint: [] Interval history: Ms. Mendez is a 88 year old F Who presents the ED after laceration of the right wrist. History is obtained from charts as sounds like patient has a baseline dementia and is a poor historian. Story is convoluted like do not have much of a history. Per notes she came in on the for psych symptoms and some small laceration of the right rich wrist which she was confused and did not know if they are self-inflicted patient could not give history. She was evaluated by Bessy WILL and was cleared and sent home. The second she came back in for weakness and recently diagnosed urinary tract infection. Patient was found on the floor of her trailer. The [id number] called the ambulance. He was given IV hydration and discharged home. Patient presents back today for laceration to right wrist. Patient does not recall falling or lying on the ground yesterday. Patient reported to triage nurse that possible intention of hurting self but to rule else she has been denying it. To me she denied wanting to hurt herself think she accidentally cut it while reaching for some dishes. -He was again cleared by isac WILL and deemed safe to go home. However she was found to have elevated CPK and thus admission was requested. Creatinine was elevated above baseline mildly. 1/4 Bicarb drip running. CPK proving. Low electrolytes. No overnight events. Complains of occasional cough. 1/5 Patient doing well. Feeling better. No new complaints other than wanting to sleep with her dogs. Patient wants to go to rehab instead of back home. CPK and renal function improving Review of Systems: denies headache/fever/chills/nausea/vomiting/chest or abdominal pain/diarrhea. Otherwise see above. - Constitutional Vitals: Vital Signs Temp Pulse Resp BP Pulse Ox 98.2 F 82 20 151/86 94 03/15/19 07:34 03/15/19 03:55 03/15/19 07:34 03/15/19 07:34 03/15/19 07:34 Period Temp Pulse Resp BP Sys/Pacheco Pulse Ox Last 24 Hr 97.7 F-99.4 F 69-82 16-22 109-153/50-86 92-100 Intake and Output 03/14/19 03/15/19 03/15/19 21:59 05:59 13:59 Intake Total 2079 240 Output Total 576 150 Balance 1504 90 Weight 66.678 kg Intake & Output: Intake & Output 03/14/19 03/15/19 03/15/19 21:59 05:59 13:59 Intake Total 2079 240 Output Total 576 150 Balance 1504 90 Weight 66.678 kg Intake: IV 1000 Sodium Bicarbonate Vial 150 Meq 1000 In Water 850 ml @ 125 mls/hr IV Q8H [facility] Rx#:[id number] Oral 680 240 GI Tube Flush 400 Output: Void Amount 575 150 # of times incontinent of urine 1 Other: Meal Dinner Percent of Meal Consumed 75% Feeding Ability Assist with Tray Set Up Urine Appearance Clear Clear Urine Color Bright Yellow Bright Yellow Urine Odor Normal Normal Stool Size Moderate Stool Color Brown Stool Consistency Dry and Hard Exam: General: Alert, Awake, No acute Distress, obese Eyes/N/T: EOMI, Head/Neck: neck supple, CV: RRR, No murmurs, Pulm: Clear b/l, no wheezing/rhonchi/rales Abd: soft, nontender, +BS x4 Ext: no clubbing/cyanosis/edema Neuro: Alert, no focal deficits, moves all extremities, Skin: warm/dry Medical - PN: Obj Da - Labs CBC & Chem 7: 03/13/19 19:45 03/15/19 05:51 Labs: Abnormal Lab Results 03/15/19 03/15/19 03/14/19 05:51 05:50 16:40 RBC Hgb Hct POC Hct MPV Gran % Lymph % (Auto) Lymph # (Auto) Potassium 3.2 L POC Chloride Carbon Dioxide POC Total CO2 Anion Gap 18.0 H POC BUN BUN 43 H Creatinine 1.4 H POC Creatinine Glucose Calcium 7.7 L POC WB Ioniz Calcium Phosphorus AST 65 H Alkaline Phosphatase 34 L Ammonia Lactate Dehydrogenase 291 H Total Creatine Kinase 1090 H Total Protein 5.1 L Albumin 2.9 L Triglycerides Urine Protein Urine Occult Blood Ur Leukocyte Esterase Urine WBC 03/14/19 03/14/19 03/13/19 11:06 06:16 19:45 RBC Hgb Hct POC Hct MPV Gran % Lymph % (Auto) Lymph # (Auto) Potassium 2.8 L* POC Chloride Carbon Dioxide 19 L POC Total CO2 Anion Gap 17.0 H POC BUN BUN 49 H Creatinine 1.7 H POC Creatinine Glucose 106 H Calcium 8.0 L POC WB Ioniz Calcium Phosphorus 1.7 L AST 85 H Alkaline Phosphatase Ammonia 10 L Lactate Dehydrogenase 302 H Total Creatine Kinase 1765 H Total Protein 5.5 L Albumin 3.0 L Triglycerides 170 H Urine Protein 30 A Urine Occult Blood 0.03 A Ur Leukocyte Esterase 500 A Urine WBC 103 H 03/13/19 03/13/19 19:45 19:45 RBC 3.22 L Hgb 10.6 L Hct 30.5 L POC Hct 32.0 L MPV 11.1 H Gran % 81.6 H Lymph % (Auto) 11.7 L Lymph # (Auto) 1.11 L Potassium POC Chloride 114 H Carbon Dioxide 14 L POC Total CO2 16 L Anion Gap POC BUN 38 H BUN 45 H Creatinine 1.9 H POC Creatinine 1.9 H Glucose 111 H Calcium POC WB Ioniz Calcium 0.94 L Phosphorus AST 110 H Alkaline Phosphatase Ammonia Lactate Dehydrogenase Total Creatine Kinase 2944 H Total Protein Albumin Triglycerides Urine Protein Urine Occult Blood Ur Leukocyte Esterase Urine WBC Meds: Medications Acetaminophen (Tylenol) 650 mg PO Q6HP PRN PRN Reason: PAIN/FEVER > 101 Last Admin: 03/14/19 18:58 Dose: 650 mg Documented by: Albuterol/Ipratropium (Duoneb) 3 ml NEB Q4HP PRN PRN Reason: Shortness Of Breath Docusate Sodium (Colace) 100 mg PO BID [facility] Last Admin: 03/14/19 20:12 Dose: 100 mg Documented by: Heparin Sodium (Porcine) (Heparin) 5,000 unit SQ Q12 [facility] Last Admin: 03/14/19 20:11 Dose: 5,000 unit Documented by: Potassium Chloride 40 meq/ (Dextrose) 520 mls @ 130 mls/hr IV UD PRN PRN Reason: Potassium < 3 Magnesium Sulfate (Magnesium Sulfate) 2 gm in 50 mls @ 50 mls/hr IV UD PRN PRN Reason: Magnesium </= 1.6 Sodium Chloride (Sodium Chloride 0.9%) 1,000 mls @ 75 mls/hr IV .[id number] [facility] Stop: 03/15/19 21:54 Last Admin: 03/14/19 19:05 Dose: 75 mls/hr Documented by: Metoprolol Tartrate (Lopressor) 12.5 mg PO QAM [facility] Ondansetron HCl (Zofran) 4 mg IV Q4HP PRN PRN Reason: Nausea And Vomiting Polyethylene Glycol (Miralax) 17 gm PO DAILYP PRN PRN Reason: Constipation Potassium Chloride (Kdur) 40 meq PO UD PRN PRN Reason: Potssium is 3-3.5 Potassium Chloride (Kdur) 40 meq PO UD PRN PRN Reason: Potassium < 3 Senna (Senokot) 2 tab PO DAILYP PRN PRN Reason: Constipation Sodium Chloride (Saline Flush) 10 ml IV Q8 [facility] Last Admin: 03/15/19 06:16 Dose: Not Given Documented by: Medical - PN: A/P - Time Spent With Patient Total time spent is greater than 50% in coordination of care (as documented) at patient's floor/unit and/or counseling patient: - Narrative A/P Narrative: A: *Rhabdomyolysis: 2/2 time on ground -CPK 1090<<2944 *TAMANNA on CKD IIIb: follows with dr penny -Improving *Hypokalemia/Phos: improved *Anemia, chronic: *DM: *HTN: *Dementia: P: -IVF's -f/u renal fxn -hold ARB/HCTZ -restart BB now the BP has come up -f/u CPK -SSI -pt/ot -ppx: heparin Medical - PN: Qual - Stroke Symptom Onset Unknown: No - VTE Deep Vein Thrombosis/Pulmonary Embolism Present on Admission: No
[2019-03-15] MEDS: 0.9 % SODIUM CHLORIDE 1,000 ML IV SCH (08:37)
[2019-03-15] MEDS: ACETAMINOPHEN 325 MG TABLET PO PRN ×2 (08:37→16:04)
[2019-03-15] MEDS ORDERED: METOPROLOL TARTRATE 25 MG TABLET PO SCH (09:00)
[2019-03-15] MEDS: METOPROLOL SUCCINATE 50 MG TAB.XL.24H PO SCH (09:10)
[2019-03-15] MEDS: DOCUSATE SODIUM 100 MG CAPSULE PO SCH ×2 (09:10→21:14)
[2019-03-15] MEDS: HEPARIN 5,000 UNIT/ML VIAL SQ SCH ×2 (09:10→21:14)
[2019-03-15] MEDS ORDERED: MELATONIN 3 MG TABLET PO PRN (20:13)
[2019-03-15] MEDS ORDERED: diphenhydrAMINE 25 MG CAPSULE PO PRN (20:14)
[2019-03-16] MEDS: 0.9 % SODIUM CHLORIDE 10 ML SYRINGE IV SCH ×3 (05:10→20:26)
[2019-03-16 08:00] LABS: Blood Urea Nitrogen 32 mg/dl (8-23); Calcium 8.3 mg/dl (8.6-10.4); Carbon Dioxide 24 mmol/L (22-30); Chloride 103 mmol/L (96-108); Glomerular Filtration Rate 37; Glucose 118 mg/dL (70-105)
[2019-03-16 08:05] LABS: Creatine Kinase 430 IU/L (24-170)
[2019-03-16] MEDS: DOCUSATE SODIUM 100 MG CAPSULE PO SCH ×3 (11:08→20:25)
[2019-03-16] MEDS: METOPROLOL SUCCINATE 50 MG TAB.XL.24H PO SCH (11:08)
[2019-03-16] MEDS: HEPARIN 5,000 UNIT/ML VIAL SQ SCH ×2 (11:08→20:25)
[2019-03-16] MEDS: cefTRIAXone 1 GM VIAL IV SCH (14:54)
[2019-03-17] MEDS: 0.9 % SODIUM CHLORIDE 10 ML SYRINGE IV SCH (05:32)
[2019-03-17] MEDS: HEPARIN 5,000 UNIT/ML VIAL SQ SCH (09:45)
[2019-03-17] MEDS: METOPROLOL SUCCINATE 50 MG TAB.XL.24H PO SCH (09:45)
[2019-03-17] MEDS: DOCUSATE SODIUM 100 MG CAPSULE PO SCH (09:45)
[2019-03-17] MEDS: cefTRIAXone 1 GM VIAL IV SCH (09:45)
[2019-03-17] MEDS: ACETAMINOPHEN 325 MG TABLET PO PRN (12:47)
== END 2019-03-17 14:15 | DRG 558 ==
LOC: ED 18:03 → MEDSUR 23:42
PROVIDERS: ADMIT Internal Medicine; ATTEND Internal Medicine

== ENCOUNTER 2019-04-14 14:57 | Inpatient (IN) ==
[2019-04-14] MEDS ORDERED: DEXTROSE 50% 50 ML VIAL IV ONE ×4 (15:52→20:38)
--- NOTE | 2019-04-14 15:53 | Cat Scan Report ---
CLINICAL INFORMATION: Code stroke COMPARISON: None. TECHNIQUE: 2.5 mm helical slices were obtained in the skull base to vertex. Following reconstruction, axial reformatted images were reviewed at bone and parenchymal windows. The exam was performed using radiation dose optimization techniques including, but not limited to, automated exposure control, adjustment of the mA and/or kV according to patient size and use of iterative reconstruction technique. FINDINGS: The ventricles, sulci, fissures, and cisterns are symmetric and large bowel with moderate age-related atrophy. No extra-axial fluid collections are identified. Patchy chronic ischemic change with inferior white matter expected for age. The cerebrum, brainstem and cerebellum are, otherwise, unremarkable. There is no evidence of hemorrhage, mass effect, or edema. Bone windows show no osseous abnormality. IMPRESSION: Moderate atrophy and chronic ischemic changes of the deep cerebral white matter expected for age. Interpreted and Authenticated by: Tye Mooney 04/14/19
--- NOTE | 2019-04-14 15:53 | Emergency Department Note ---
Altered Mental Status HPI - General Chief Complaint: Altered Mental Status Stated Complaint: decreased LOC, hallucinations Time Seen by Provider: 04/14/19 15:04 Source: RN notes reviewed Mode of arrival: wheelchair Limitations: altered mental status, physical limitation - History of Present Illness HPI Narrative: This 88-year-old patient at [facility] was transferred here for some mental status changes. To clarify these we had to call several times and around 3:45 PM finally realized or identified that her last known normal was 10 AM in which she received medications and was verbal at that time. Around 2 PM she was found to be nonverbal, confused, lethargic, sleepy here. She was not noticed at that time to have asymmetry to her extremities. She was transported arriving here around 3 PM. REVIEW OF SYSTEMS: Patient completely nonverbal and unable to obtain - Related Data Home Medications Medication Instructions Recorded Confirmed Losartan/Hctz 100/25 [Hyzaar 0.5 tab PO DAILY 03/14/19 03/14/19 100/25] Meclizine [Antivert] 25 mg PO TID 03/14/19 03/14/19 Metoprolol Tartrate [Lopressor] 50 mg PO QAM 03/14/19 03/14/19 Previous Rx's Medication Instructions Recorded glipizide 5 mg tablet 5 mg PO BIDAC #60 tab 04/28/15 Levofloxacin [Levaquin] 250 mg PO DAILY #2 tab 03/16/19 Allergies Allergy/AdvReac Type Severity Reaction Status Date / Time Calcium Channel Blocking Allergy Severe Anaphylaxis Verified 03/13/19 18:03 Agents-Elliott nifedipine [From Procardia] Allergy Severe Anaphylaxis Verified 03/13/19 18:03 rofecoxib [From Vioxx] Allergy Severe Anaphylaxis Verified 03/13/19 18:03 Past Medical History - Past Medical History Medical history: Reports: arthritis, DM, hyperlipidemia, hypertension, migraine, renal disease Psychiatric history: Reports: anxiety CYCLE SPECIALIST history: Reports: bilateral tubal ligation Surgical history ED: Reports: , cataract, other (shoulder) - Social History smoking status: Smoker, status unknown Alcohol use: Reports: None, Occasionally Drug use: Reports: none Physical Exam Initial exam: Patient with eyes closed making some moaning sounds but not understandable words or syllables. Some gagging choking at times. Extremities: No cyanosis or clubbing. Neuro: Flaccid left upper extremity and left lower extremity. Lungs clear to auscultation Cardiovascular regular Limitations: altered mental status, physical limitation Course Vital Signs Temperature 98.3 F 04/14/19 15:02 Pulse Rate 69 04/14/19 15:02 Respiratory Rate 16 04/14/19 15:02 Blood Pressure 155/81 04/14/19 15:02 Pulse Oximetry (%) 98 04/14/19 15:02 Temperature 99.4 F H 04/14/19 17:52 Pulse Rate 150 H 04/14/19 18:13 Respiratory Rate 25 H 04/14/19 20:22 Blood Pressure 119/67 04/14/19 20:22 Pulse Oximetry (%) 94 04/14/19 18:13 Altered Mental Status - [facility] Narrative Medical decision making narrative: 3:45 PM - we finally were able to clarify patient's last nonverbal after several calls to [facility]. See history of present illness. Code stroke neurologist summoned. 3:51 PM - while speaking with neurologist, blood sugar found to be 31. Half amp of D50 ordered. tPA being held at this time. 4:05 PM - patient symptoms have rapidly improved with some movement of her left side and making some sounds in sentences. 4:25 PM - patient symptoms have now almost completely resolved with interacting appropriately and well and astutely and moving all extremities easily and well. Approximately 5:55 PM - Dr. Flores, stroke neurologist calls back and I followed up with the report with him and he is agreeable to the circumstances of not doing the CT angiogram of the head/neck. Subsequently patient had multiple episodes of her blood sugars coming back up even as high as above 115 range but would subsequently dip back down to under 70. This is even after oral intake and after several doses (total of 3 doses of a half amp of D50) and also after starting D5W at 75 cc an hour and then increase to 125 cc/h. Most recently (approximately 8:30 PM)has received an additional full amp of D50. 8:44 PM - I spoke with hospitalist, Dr. Sal Luke, who kindly accepts this patient for additional monitoring and treatment of her persisting significant hypoglycemia. He remains unexplained as to exact cause. Suspicious for patient having received a medication that has hypoglycemic effects although she does not remember anything unusual and paresthesias not report any inadvertent administrations. Goal will be to return her back to [facility] to fulfill her rehabilitation to return to her own home/trailer. - Lab Data Result diagrams: 04/14/19 15:50 04/14/19 15:50 Lab Results 04/14/19 04/14/19 04/14/19 Range/Units 15:50 15:50 15:50 WBC 16.3 H (4.50-11.00) K/mcL RBC 3.89 (3.59-5.38) M/mcL Hgb 12.5 (11.2-15.7) g/dL Hct 37.9 (34.1-44.9) % POC Hct 38.0 (36.0-48.0) % MCV 97.4 (80.0-100.0) fL MCH 32.1 (26.0-34.0) pg MCHC 33.0 (31.0-36.0) g/dL RDW 13.2 (11.5-14.5) % Plt Count 240 (140-440) K/mcL MPV 11.5 H (7.4-10.4) fL Gran % 78.0 (38.0-78.0) % Lymph % (Auto) 13.5 L (15.5-49.0) % [place] % (Auto) 8.0 (1.0-12.0) % Eos % (Auto) 0.4 (0.0-7.0) % Baso % (Auto) 0.1 (0.0-2.0) % Gran # 12.70 H (1.80-8.00) K/mcL Lymph # (Auto) 2.19 (1.50-4.80) K/mcL [place] # (Auto) 1.31 H (0.10-0.90) K/mcL Eos # (Auto) 0.06 (0.00-0.70) K/mcL Baso # (Auto) 0.02 (0.00-0.30) K/mcL POC PT 15.2 H (11.9-14.5) sec POC INR 1.3 H (0.9-1.2) APTT 33 (20-37) sec POC Sodium 137 (133-145) mmol/L Sodium 131 L (133-145) mmol/L POC Potassium 4.7 (3.3-5.1) mmol/L Potassium 4.7 (3.3-5.1) mmol/L POC Chloride 113 H (96-108) mmol/L Chloride 104 (96-108) mmol/L Carbon Dioxide 13 L (22-30) mmol/L POC Total CO2 16 L (22-30) mmol/L Anion Gap 14.0 (8-16) POC BUN 51 H (8-23) mg/dl BUN 52 H (8-23) mg/dl Creatinine 1.9 H (0.6-1.1) mg/dl POC Creatinine 2.0 H (0.6-1.1) mg/dl GFR Calculation 23 Glucose 33 L* (70-105) mg/dL POC Glucose 32 L* (70-105) mg/dL Calcium 9.7 (8.6-10.4) mg/dl POC WB Ioniz Calcium 1.30 (1.16-1.32) mmol/L Total Bilirubin 0.3 (0.0-1.0) mg/dL AST 16 (0-37) U/l ALT 11 (0-40) U/l Alkaline Phosphatase 53 (39-117) U/L Troponin T (0-0.03) ng/ml Total Protein 7.6 (5.9-8.4) gm/dL Albumin 4.0 (3.2-5.2) gm/dL Globulin 3.6 (2.2-3.7) gm/dL Albumin/Globulin Ratio 1.1 (1.0-2.3) Urine Color Urine Appearance Urine pH (5.0-9.0) Ur Specific [place] (1.000-1.035) Urine Protein (NEG) mg/dL Urine Glucose (UA) (NEG) mg/dL Urine Ketones (NEG) mg/dL Urine Occult Blood (<0.03) mg/dL Urine Nitrate (NEG) Urine Bilirubin (NEG) mg/dL Urine Urobilinogen (NEG) mg/dL Ur Leukocyte Esterase (NEG) /uL Urine RBC (0-1) /hpf Urine WBC (0-4) /hpf Ur Squamous Epith Cells (0-4) /hpf Urine Bacteria (0) /hpf Hyaline Casts (0-2) /lpf Urine Mucus (0) /hpf Ur Culture Indicated? 02/04/20 02/04/20 Range/Units 15:50 17:50 WBC (4.50-11.00) K/mcL RBC (3.59-5.38) M/mcL Hgb (11.2-15.7) g/dL Hct (34.1-44.9) % POC Hct (36.0-48.0) % MCV (80.0-100.0) fL MCH (26.0-34.0) pg MCHC (31.0-36.0) g/dL RDW (11.5-14.5) % Plt Count (140-440) K/mcL MPV (7.4-10.4) fL Gran % (38.0-78.0) % Lymph % (Auto) (15.5-49.0) % Ben[place] % (Auto) (1.0-12.0) % Eos % (Auto) (0.0-7.0) % Baso % (Auto) (0.0-2.0) % Gran # (1.80-8.00) K/mcL Lymph # (Auto) (1.50-4.80) K/mcL Benzie # (Auto) (0.10-0.90) K/mcL Eos # (Auto) (0.00-0.70) K/mcL Baso # (Auto) (0.00-0.30) K/mcL POC PT (11.9-14.5) sec POC INR (0.9-1.2) APTT (20-37) sec POC Sodium (133-145) mmol/L Sodium (133-145) mmol/L POC Potassium (3.3-5.1) mmol/L Potassium (3.3-5.1) mmol/L POC Chloride (96-108) mmol/L Chloride (96-108) mmol/L Carbon Dioxide (22-30) mmol/L POC Total CO2 (22-30) mmol/L Anion Gap (8-16) POC BUN (8-23) mg/dl BUN (8-23) mg/dl Creatinine (0.6-1.1) mg/dl POC Creatinine (0.6-1.1) mg/dl GFR Calculation Glucose (70-105) mg/dL POC Glucose (70-105) mg/dL Calcium (8.6-10.4) mg/dl POC WB Ioniz Calcium (1.16-1.32) mmol/L Total Bilirubin (0.0-1.0) mg/dL AST (0-37) U/l ALT (0-40) U/l Alkaline Phosphatase (39-117) U/L Troponin T < 0.01 (0-0.03) ng/ml Total Protein (5.9-8.4) gm/dL Albumin (3.2-5.2) gm/dL Globulin (2.2-3.7) gm/dL Albumin/Globulin Ratio (1.0-2.3) Urine Color Yellow Urine Appearance Clear Urine pH 5.0 (5.0-9.0) Ur Specific [place] 1.014 (1.000-1.035) Urine Protein 100 A (NEG) mg/dL Urine Glucose (UA) Negative (NEG) mg/dL Urine Ketones Neg (NEG) mg/dL Urine Occult Blood 0.03 A (<0.03) mg/dL Urine Nitrate Neg (NEG) Urine Bilirubin Neg (NEG) mg/dL Urine Urobilinogen Neg (NEG) mg/dL Ur Leukocyte Esterase Neg (NEG) /uL Urine RBC 2 H (0-1) /hpf Urine WBC 0 (0-4) /hpf Ur Squamous Epith Cells 0 (0-4) /hpf Urine Bacteria 0 (0) /hpf Hyaline Casts 3 H (0-2) /lpf Urine Mucus Few (0) /hpf Ur Culture Indicated? No Disposition Pt seen by [facility]/PA only: No Clinical Impression: Hypoglycemia, Transient neurologic deficit Disposition: Xfer As Outpt/Obs ([facility]) Referrals: Clarisse Crisostomo ARNP [Primary Care Provider] -
[2019-04-14 16:19] LABS: POC Blood Urea Nitrogen 51 mg/dl (8-23); POC CO2 16 mmol/L (22-30); POC Chloride 113 mmol/L (96-108); POC Glucose, Random 32 mg/dL (70-105); POC Potassium 4.7 mmol/L (3.3-5.1); POC Sodium 137 mmol/L (133-145)
[2019-04-14 16:20] LABS: Basophils # (Auto) 0.02 K/mcL (0.00-0.30); Basophils % (Auto) 0.1 % (0.0-2.0); Eosinophils # (Auto) 0.06 K/mcL (0.00-0.70); Eosinophils % (Auto) 0.4 % (0.0-7.0); Hematocrit 37.9 % (34.1-44.9); Hemoglobin 12.5 g/dL (11.2-15.7); Lymphocytes # (Auto) 2.19 K/mcL (1.50-4.80); Lymphocytes % (Auto) 13.5 % (15.5-49.0); Mean Cell Volume 97.4 fL (80.0-100.0); Mean Platelet Volume 11.5 fL (7.4-10.4); Monocytes # (Auto) 1.31 K/mcL (0.10-0.90); POC INR 1.3 (0.9-1.2); POC Pro Time 15.2 sec (11.9-14.5); Platelet Count 240 K/mcL (140-440); RBC 3.89 M/mcL (3.59-5.38); Red Cell Distribution Width 13.2 % (11.5-14.5); WBC 16.3 K/mcL (4.50-11.00)
[2019-04-14 16:47] LABS: ALT/SGPT 11 U/l (0-40); AST/SGOT 16 U/l (0-37); Albumin/Globulin Ratio 1.1 (1.0-2.3); Alkaline Phosphatase 53 U/L (39-117); Bilirubin,Total 0.3 mg/dL (0.0-1.0); Blood Urea Nitrogen 52 mg/dl (8-23); Calcium 9.7 mg/dl (8.6-10.4); Carbon Dioxide 13 mmol/L (22-30); Chloride 104 mmol/L (96-108); Globulin 3.6 gm/dL (2.2-3.7); Glomerular Filtration Rate 23
[2019-04-14 16:53] LABS: Glucose 33 mg/dL (70-105)
[2019-04-14 18:30] LABS: Appearance,Urine CLEAR; Bacteria,Urine 0 /hpf (0); Bilirubin,Urine NEG (NEG); Color,Urine YELLOW; Culture Indicated,Urine NO; Glucose,Urine (UA) NEGATIVE (NEG); Ketones,Urine NEG (NEG); Leukocyte Esterase,Urine NEG /uL (NEG); Mucus,Urine FEW /hpf (0); Nitrate,Urine NEG (NEG); Protein,Urine 100 mg/dL (NEG); Specific Gravity,Urine 1.014 (1.000-1.035); Urine Blood 0.03 mg/dL (<0.03); Urine Hyaline Cast 3 /lpf (0-2); Urine RBC 2 /hpf (0-1); Urine Squamous Epithelial Cell 0 /hpf (0-4); Urine WBC 0 /hpf (0-4); Urobilinogen,Urine NEG (NEG)
[2019-04-14] MEDS ORDERED: DEXTROSE 5% IN WATER 500 ML IV SCH (20:15)
--- NOTE | 2019-04-14 21:07 | Internal Med History&Physical ---
Medical - H&P: [facility] Patient information: Note initiated : 04/14/19 at 9:05 pm Service Date, if different from initiated Date: [] Patient: Ana Mendez a 88 y/o F admitted on for decreased LOC, hallucinations. Chief Complaint: [] History of present illness: Ms. Mendez is a 88 year old F Patient sent in from the nursing facility for altered level status hallucination diaphoretic. Only significant history is recently taken Macrobid which is stopped and poor oral intake. Patient unable to follow commands of the fac ility. Sounds like the symptoms were noted around 2 PM and where she was noted to be of nonverbal confused lethargic. And she was noticed to have asymmetry in her extremities. Work-up in ED revealed a blood glucose of 31. She is on glipizide 5 mg twice daily. Last A1c in the system was June 2018 which was 5.8. Patient was given glucose IV in the ED with rapid improvement of her symptoms. However she continues to drop and is requiring it glucose drip. In speaking with her she denies any pains or complaints at this time Review of Systems: Pertinent positives as above. Denies headache /fever/chills/nausea/vomiting/chest or abdominal pain/cough/dyspnea/diarrhea. Remaining 10 point review of system reviewed negative Medical - H&P: [facility] Medical history: Medical History Hypokalemia (Chronic) Trochanteric bursitis, right hip (Chronic) Lateral epicondylitis (Chronic) Diabetic peripheral neuropathy (Chronic) Peripheral vertigo (Chronic) Insomnia (Chronic) Hypertension (Chronic) Osteoarthritis of hip (Chronic) Diabetic renal disease (Chronic) Lactic acidosis (Acute) SIRS (systemic inflammatory response syndrome) (Acute) Acute renal injury (Acute) Hypovolemia dehydration (Acute) Metabolic encephalopathy (Acute) Electrolyte and fluid disorder (Acute) Dyslipidemia (Acute) Uncontrolled hypertension (Acute) Constipation (Acute) Nausea & vomiting (Acute) Strain of lumbar region (Acute) Restless leg syndrome (Acute) Chronic kidney disease, stage III (moderate) (Chronic) Abdominal pain (Acute) Hypertensive crisis (Chronic) Acute kidney injury (Chronic) Lactic acidosis (Chronic) Small bowel obstruction (Chronic) Duodenitis (Acute) Gastroenteritis (Acute) SIRS (systemic inflammatory response syndrome) (Acute) Malignant essential hypertension (Acute) Diabetes mellitus (Acute) Acute infective gastroenteritis (Chronic) Family History Mother CHF (congestive heart failure) Son Diabetes mellitus Father Suicide Social History States she used chewing tobacco the past Denies alcohol use Ambulates with a cane Currently living in a nursing facility Medical - H&P: Meds Home Medications Medication Instructions Recorded Confirmed Type glipizide 5 mg tablet 5 mg PO BIDAC #60 tab 04/28/15 04/14/19 Rx Losartan/Hctz 100/25 [Hyzaar 0.5 tab PO DAILY 03/14/19 03/14/19 History 100/25] Meclizine [Antivert] 25 mg PO TID 03/14/19 04/14/19 History Metoprolol Tartrate [Lopressor] 50 mg PO QAM 03/14/19 04/14/19 History Levofloxacin [Levaquin] 250 mg PO DAILY #2 tab 03/16/19 Rx Chlorthalidone [Hygroton] 25 mg PO DAILY 04/14/19 04/14/19 History HYDROcodone/APAP 5/325MG [[place] 1 tab PO Q6HP PRN 04/14/19 04/14/19 History 5-325Mg] Irbesartan [Avapro] 300 mg PO DAILY 04/14/19 04/14/19 History Magnesium Hydroxide [Milk of 30 ml PO Q72 04/14/19 04/14/19 History Magnesia] Polyethylene Glycol 3350 [Miralax] 17 gm PO DAILY 04/14/19 04/14/19 History Potassium Chloride [Kdur] 20 meq PO BIDCC 04/14/19 04/14/19 History Spironolactone [Aldactone] 12.5 mg PO ONCE 04/14/19 04/14/19 History Allergies Allergy/AdvReac Type Severity Reaction Status Date / Time Calcium Channel Blocking Allergy Severe Anaphylaxis Verified 03/13/19 18:03 Agents-Elliott nifedipine [From Procardia] Allergy Severe Anaphylaxis Verified 03/13/19 18:03 rofecoxib [From Vioxx] Allergy Severe Anaphylaxis Verified 03/13/19 18:03 Medical - H&P: Exam - Constitutional Vitals: Temp Pulse Resp BP Pulse Ox 99.4 F H 150 H 25 H 119/67 94 04/14/19 17:52 04/14/19 18:13 04/14/19 20:22 04/14/19 20:22 04/14/19 18:13 Exam: General: Alert, Awake, No acute Distress Eyes/N/T: EOMI, PERRL, dry MM Head/Neck: neck supple, normocephalic atraumatic CV: RRR, No murmurs, normal s1/s2 Pulm: Clear b/l, no wheezing/rhonchi/rales Abd: soft, nontender, +BS x4 Ext: no clubbing/cyanosis/edema Neuro: Alert, no focal deficits, moves all extremities, CN 2-12 grossly intact, symmetrical strength b/l upper/lower, sensations intact b/l upper/lower Skin: warm/dry Medical - H&P: [facility] - Labs CBC & Chem 7: 04/14/19 15:50 04/14/19 15:50 Labs: Short CBC 04/14/19 Range/Units 15:50 WBC 16.3 H (4.50-11.00) K/mcL Hgb 12.5 (11.2-15.7) g/dL Hct 37.9 (34.1-44.9) % Plt Count 240 (140-440) K/mcL BMP 04/14/19 15:50 Sodium 131 L Potassium 4.7 Chloride 104 Carbon Dioxide 13 L BUN 52 H Creatinine 1.9 H Glucose 33 L* Calcium 9.7 Cardiac Enzymes 04/14/19 Range/Units 15:50 Troponin T < 0.01 (0-0.03) ng/ml Liver Function 04/14/19 Range/Units 15:50 Total Bilirubin 0.3 (0.0-1.0) mg/dL AST 16 (0-37) U/l ALT 11 (0-40) U/l Alkaline Phosphatase 53 (39-117) U/L Albumin 4.0 (3.2-5.2) gm/dL Urine 04/14/19 Range/Units 17:50 Urine Color Yellow Urine Appearance Clear Urine pH 5.0 (5.0-9.0) Ur Specific [place] 1.014 (1.000-1.035) Urine Protein 100 A (NEG) mg/dL Urine Glucose (UA) Negative (NEG) mg/dL Medical - H&P: A/P - Narrative A/P Narrative: A: *Hypoglycemia and diabetic: risk factors include Age/CKD/sulfonylurea-glipizide 5mg bid *TAMANNA on CKD IIIb: follows with dr penny *volume depletion: *Hyponatremia: *Anemia, chronic: *DM: *HTN: on chlorthalidone/ARB/aldactone *Dementia: P: -glucose gtt -glipizide stopped -check A1c, tsh -IVF -f/u renal fxn, monitor UOP -hold ARB/HCTZ -pt/ot -ppx: heparin
[2019-04-14] MEDS ORDERED: 0.9 % SODIUM CHLORIDE 1,000 ML IV ONE (21:14)
[2019-04-14] MEDS ORDERED: LACTATED RINGERS 1,000 ML IV SCH ×3 (21:15→22:52)
[2019-04-14] MEDS ORDERED: IPRATROPIUM/ALBUTEROL 3 ML AMPUL.NEB NEB PRN (22:52)
[2019-04-14] MEDS ORDERED: POTASSIUM CHLORIDE 40 MEQ in DEXTROSE 5% IN WATER 500 ML IV PRN (22:52)
[2019-04-14] MEDS ORDERED: HYDROcodone/APAP 5/325MG TABLET PO PRN (22:52)
[2019-04-14] MEDS ORDERED: MAGNESIUM SULFATE 2 GM/50 ML BAG IV PRN (22:52)
[2019-04-14] MEDS ORDERED: POLYETHYLENE GLYCOL 3350 17 GM PACKET PO PRN (22:52)
[2019-04-14] MEDS ORDERED: SENNOSIDES 1 TABLET PO PRN (22:52)
[2019-04-14] MEDS ORDERED: POTASSIUM CHLORIDE 20 MEQ TABLET PO PRN ×2 (22:52)
[2019-04-14] MEDS ORDERED: ONDANSETRON 4 MG/2 ML VIAL IV PRN (22:52)
[2019-04-14] MEDS ORDERED: MECLIZINE 25 MG TABLET PO PRN (22:52)
[2019-04-14] MEDS ORDERED: ACETAMINOPHEN 325 MG TABLET PO ONE (23:08)
[2019-04-14] MEDS: ACETAMINOPHEN 325 MG TABLET PO PRN (23:15)
[2019-04-14] MEDS: DEXTROSE 10 % IN WATER 1,000 ML IV SCH (23:18)
[2019-04-14] MEDS: 0.9 % SODIUM CHLORIDE 10 ML SYRINGE IV SCH (23:19)
[2019-04-15 00:14] LABS: Thyroid Stimulating Hormone 1.17 uIU/ml (0.27-5.01)
[2019-04-15 00:19] LABS: Hemoglobin A1C 5.8 % HGB (4.0-6.0)
[2019-04-15] MEDS: 0.9 % SODIUM CHLORIDE 10 ML SYRINGE IV SCH ×3 (06:07→20:24)
--- NOTE | 2019-04-15 06:52 | Internal Med Progress Note ---
Medical - PN: Subj Patient information: Note initiated : 04/15/19 at 6:50 am Service Date, if different from initiated Date: [] Patient: Ana Mendez a 88 y/o F admitted on 04/14/19 for decreased LOC, hallucinations. Chief Complaint: [] Interval history: Ms. Mendez is a 88 year old F Patient sent in from the nursing facility for altered level status hallucination diaphoretic. Only significant history is recently taken Macrobid which is stopped and poor oral intake. Patient unable to follow commands of the faci lity. Sounds like the symptoms were noted around 2 PM and where she was noted to be of nonverbal confused lethargic. And she was noticed to have asymmetry in her extremities. Work-up in ED revealed a blood glucose of 31. She is on glipizide 5 mg twice daily. Last A1c in the system was June 2018 which was 5.8. Patient was given glucose IV in the ED with rapid improvement of her symptoms. However she continues to drop and is requiring it glucose drip. In speaking with her she denies any pains or complaints at this time 2/5 Patient sleeping when arrived but easily woken by voice. Follows commands. No new complaints overnight events. Glucose more stable. Hopefully wean off glucose drip this morning. Review of Systems: denies headache/fever/chills/nausea/vomiting/chest or abdominal pain/cough/dyspnea/diarrhea. Otherwise see above. - Constitutional Vitals: Vital Signs Temp Pulse Resp BP Pulse Ox 98.4 F 68 20 130/52 100 04/15/19 04:00 04/15/19 04:00 04/15/19 04:00 04/15/19 04:00 04/15/19 04:00 Period Temp Pulse Resp BP Sys/Pacheco Pulse Ox Last 24 Hr 98.3 F-101.1 F 68-150 15-30 88-214/37-202 94-100 Intake and Output 04/14/19 04/15/19 04/15/19 21:59 05:59 13:59 Intake Total 83 1553 239 Output Total 1200 125 Balance 83 353 114 Weight 59.874 kg 62.006 kg Intake & Output: Intake & Output 04/14/19 04/15/19 04/15/19 21:59 05:59 13:59 Intake Total 83 1553 239 Output Total 1200 125 Balance 83 353 114 Weight 59.874 kg 62.006 kg Intake: IV 83 1553 239 Dextrose 10%-Water IV Solution 136 239 1,000 ml @ 15 mls/hr IV .Q24H [facility] Rx#:[id number] Dextrose 5% in Water 500 ml @ 83 417 75 mls/hr IV .Q6H40M [facility] Rx#: [id number] Lactated Ringers 1,000 ml @ 500 1000 mls/hr IV .Q2H [facility] Rx#: [id number] Output: Void Amount 1200 125 Other: Urine Appearance Clear Clear Fem Cath Cloudy Urine Color Bright Yellow Bright Yellow Fem Cath Pale Exam: General: Alert, Awake, No acute Distress Eyes/N/T: EOMI, Head/Neck: neck supple, CV: RRR, No murmurs, Pulm: Clear b/l, no wheezing/rhonchi/rales Abd: soft, nontender, +BS x4 Ext: no clubbing/cyanosis/edema Neuro: Alert, no focal deficits, moves all extremities, Skin: warm/dry Medical - PN: Obj Da - Labs CBC & Chem 7: 04/15/19 05:00 04/15/19 05:00 Labs: Abnormal Lab Results 04/14/19 04/14/19 04/14/19 17:50 15:50 15:50 WBC MPV Lymph % (Auto) Gran # [place] # (Auto) POC PT 15.2 H POC INR 1.3 H Sodium 131 L POC Chloride 113 H Carbon Dioxide 13 L POC Total CO2 16 L POC BUN 51 H BUN 52 H Creatinine 1.9 H POC Creatinine 2.0 H Glucose 33 L* POC Glucose 32 L* Urine Protein 100 A Urine Occult Blood 0.03 A Urine RBC 2 H Hyaline Casts 3 H 04/14/19 15:50 WBC 16.3 H MPV 11.5 H Lymph % (Auto) 13.5 L Gran # 12.70 H [place] # (Auto) 1.31 H POC PT POC INR Sodium POC Chloride Carbon Dioxide POC Total CO2 POC BUN BUN Creatinine POC Creatinine Glucose POC Glucose Urine Protein Urine Occult Blood Urine RBC Hyaline Casts Meds: Medications Acetaminophen (Tylenol) 650 mg PO Q6HP PRN PRN Reason: PAIN/FEVER > 101 Last Admin: 04/14/19 23:15 Dose: 650 mg Documented by: Hydrocodone Bitart/Acetaminophen ([place] 5/325mg) 1 tab PO Q6HP PRN; Protocol PRN Reason: Pain Albuterol/Ipratropium (Duoneb) 3 ml NEB Q4HP PRN PRN Reason: Shortness Of Breath Diagnostic Test (Pha) (Accu-Chek) 1 each FS Q1 [facility] Last Admin: 04/15/19 06:00 Dose: 1 each Documented by: Docusate Sodium (Colace) 100 mg PO BID [facility] Heparin Sodium (Porcine) (Heparin) 5,000 unit SQ Q12 [facility] Potassium Chloride 40 meq/ (Dextrose) 520 mls @ 130 mls/hr IV UD PRN PRN Reason: Potassium < 3 Magnesium Sulfate (Magnesium Sulfate) 2 gm in 50 mls @ 50 mls/hr IV UD PRN PRN Reason: Magnesium </= 1.6 Lactated Ringer's (Lactated Ringers) 1,000 mls @ 75 mls/hr IV .[id number] [facility] Stop: 04/15/19 12:11 Last Admin: 04/14/19 23:59 Dose: 75 mls/hr Documented by: Dextrose (Dextrose 10%-Water Iv Solution) 1,000 mls @ 15 mls/hr IV .Q24H [facility] Last Infusion: 04/15/19 06:06 Dose: 50 mls/hr Documented by: Meclizine HCl (Antivert) 25 mg PO TID PRN PRN Reason: vertigo Metoprolol Tartrate (Lopressor) 50 mg PO QAM [facility] Ondansetron HCl (Zofran) 4 mg IV Q4HP PRN PRN Reason: Nausea And Vomiting Polyethylene Glycol (Miralax) 17 gm PO DAILYP PRN PRN Reason: Constipation Potassium Chloride (Kdur) 40 meq PO UD PRN PRN Reason: Potssium is 3-3.5 Potassium Chloride (Kdur) 40 meq PO UD PRN PRN Reason: Potassium < 3 Senna (Senokot) 2 tab PO DAILYP PRN PRN Reason: Constipation Sodium Chloride (Saline Flush) 10 ml IV Q8 [facility] Last Admin: 04/15/19 06:07 Dose: 10 ml Documented by: Medical - PN: A/P - Time Spent With Patient Total time spent is greater than 50% in coordination of care (as documented) at patient's floor/unit and/or counseling patient: - Narrative A/P Narrative: A: *Hypoglycemia in diabetic: risk factors include Age/CKD/sulfonylurea-glipizide 5mg bid -A1c 5.8, TSH wnl *TAMANNA on CKD IIIb: follows with dr penny -Improving *volume depletion: improved *Metabolic acidosis: *Hyponatremia: *hypomag: *Anemia, chronic: *DM: *HTN: on chlorthalidone/ARB/aldactone *Dementia: P: -glucose gtt wean off -glipizide stopped -IVF -Nephro consult -urine studies -f/u renal fxn, monitor UOP -hold ARB/HCTZ -pt/ot -ppx: heparin
[2019-04-15 07:13] LABS: Hematocrit 32.8 % (34.1-44.9); Hemoglobin 10.9 g/dL (11.2-15.7); Mean Corpuscular HGB Conc 33.2 g/dL (31.0-36.0); Mean Platelet Volume 11.7 fL (7.4-10.4); Platelet Count 190 K/mcL (140-440); RBC 3.38 M/mcL (3.59-5.38); Red Cell Distribution Width 13.3 % (11.5-14.5); WBC 10.3 K/mcL (4.50-11.00)
[2019-04-15 07:18] LABS: Bilirubin,Direct < 0.2 mg/dL (0.0-0.3); Chloride 103 mmol/L (96-108)
[2019-04-15 07:21] LABS: ALT/SGPT 9 U/l (0-40); AST/SGOT 16 U/l (0-37); Alkaline Phosphatase 41 U/L (39-117); Bilirubin,Total 0.4 mg/dL (0.0-1.0); Blood Urea Nitrogen 47 mg/dl (8-23); Calcium 8.7 mg/dl (8.6-10.4); Carbon Dioxide 13 mmol/L (22-30); Globulin 2.9 gm/dL (2.2-3.7); Glomerular Filtration Rate 29; Glucose 78 mg/dL (70-105); Lactate Dehydrogenase 195 U/L (94-250); Phosphorous 2.6 mg/dL (2.7-4.5); Triglycerides 172 mg/dl (<150); Uric Acid 6.5 mg/dL (2.5-8.0)
[2019-04-15 08:01] LABS: Band Neutrophils % 1 % (0-10); Lymphocytes % 27 % (15-49); Monocytes % (Manual) 9 % (1-12); Platelet Estimate NORMAL (NORMAL); RBC Morphology NORMAL (NORMAL); Segmented Neutrophils % 63 % (38-78); Toxic Granulation 1+ (NONE SEEN)
[2019-04-15] MEDS ORDERED: MAGNESIUM SULFATE 8.12 MEQ in DEXTROSE 5% IN WATER 50 ML IV ONE (08:29)
[2019-04-15] MEDS: HEPARIN 5,000 UNIT/ML VIAL SQ SCH ×2 (10:25→20:22)
[2019-04-15] MEDS: DOCUSATE SODIUM 100 MG CAPSULE PO SCH ×2 (10:25→20:22)
[2019-04-15] MEDS: METOPROLOL TARTRATE 50 MG TABLET PO SCH (10:25)
--- NOTE | 2019-04-15 10:48 | Nephrology Consult Note ---
History of Present Illness - Reason for Consult Patient information: Note initiated : 04/15/19 at 10:46 am Service Date, if different from initiated Date: [] Patient: Ana Mendez 88 y/o F admitted on 04/14/19 for decreased LOC, hallucinations. Chief Complaint: [] chronic renal failure, metabolic acidosis - Chief Complaint Alteration in mental status at [place] - History of Present Illness This patient is a chronically ill 88-year-old woman who I saw a long time in the summer 2018 with chronic kidney disease level 3 with a creatinine in the mid teens. Hx from the ER staff is as follows:"Cristela was transferred here for some mental status changes. To clarify these we had to call several times and around 3:45 PM finally realized or identified that her last known normal was 10 AM in which she received medications and was verbal at that time. Around 2 PM s he was found to be nonverbal, confused, lethargic, sleepy here. She was not noticed at that time to have asymmetry to her extremities. She was transported arriving here around 3 PM." In the ER "Work-up in ED revealed a blood glucose of 31. She is on glipizide 5 mg twice daily. Last A1c in the system was June 2018 which was 5.8. Patient was given glucose IV in the ED with rapid improvement of her symptoms. However she continues to drop and is requiring it glucose drip." Her significant labs are as follows: So the patient is an elderly diabetic woman on glipizide with prolonged hypo glycemia which suggests either poor hepatic reserves glycogen, prolonged hypoglycemia to use up her glycogen reserve, or something interfering (Metoprolol) with the normal epinephrine mediated release of glycogen stores, or finally some degree of cortisol deficiency. The hyponatremia I am sure was related to previous thiazide, aldactone use, and/or a "tea and toast" diet. The acidosis is non-anion gap/hyperchloremic and insofar as the urine pH is maximally acidified at 5.0, it seems unlikely that this patient has an RTA and GI bicarbonate losses would be my thought. She definately needs Rx list "cleaned up". Resist thhe temptation to "fix her acidosis" till the potassium stores have been repleated. Medications and Allergies Home Medications Medication Instructions Recorded Confirmed Type glipizide 5 mg tablet 5 mg PO BIDAC #60 tab 04/28/15 04/14/19 Rx Losartan/Hctz 100/25 [Hyzaar 0.5 tab PO DAILY 03/14/19 03/14/19 History 100/25] Meclizine [Antivert] 25 mg PO TID 03/14/19 04/14/19 History Metoprolol Tartrate [Lopressor] 50 mg PO QAM 03/14/19 04/14/19 History Levofloxacin [Levaquin] 250 mg PO DAILY #2 tab 03/16/19 Rx Chlorthalidone [Hygroton] 25 mg PO DAILY 04/14/19 04/14/19 History HYDROcodone/APAP 5/325MG [[place] 1 tab PO Q6HP PRN 04/14/19 04/14/19 History 5-325Mg] Irbesartan [Avapro] 300 mg PO DAILY 04/14/19 04/14/19 History Magnesium Hydroxide [Milk of 30 ml PO Q72 04/14/19 04/14/19 History Magnesia] Polyethylene Glycol 3350 [Miralax] 17 gm PO DAILY 04/14/19 04/14/19 History Potassium Chloride [Kdur] 20 meq PO BIDCC 04/14/19 04/14/19 History Spironolactone [Aldactone] 12.5 mg PO ONCE 04/14/19 04/14/19 History Allergies Allergy/AdvReac Type Severity Reaction Status Date / Time Calcium Channel Blocking Allergy Severe Anaphylaxis Verified 03/13/19 18:03 Agents-Elliott nifedipine [From Procardia] Allergy Severe Anaphylaxis Verified 03/13/19 18:03 rofecoxib [From Vioxx] Allergy Severe Anaphylaxis Verified 03/13/19 18:03 Exam - Vital Signs Vital signs: Temp Pulse Resp BP Pulse Ox 37.1 C 64 18 129/64 99 04/15/19 07:53 04/15/19 07:53 04/15/19 07:53 04/15/19 07:53 04/15/19 07:53 - General Appearance General appearance: appears started age, frail EENT: ATNC, PERRL, mucous membranes dry Neck: no JVD Respiratory: kyphosis Cardiology: no murmurs Gastrointestinal: normoactive bowel sounds Integumentary: no rash Neurologic: no focal deficit Musculoskeletal: no deformities Psychiatric: mood/affect appropriate Results - Lab Results 04/15/19 05:00 04/16/19 05:00 Most recent lab results Calcium 8.7 mg/dl (8.6-10.4) 04/15/19 05:00 Phosphorus 2.6 mg/dL (2.7-4.5) L 04/15/19 05:00 Magnesium 1.2 mg/dL (1.6-2.5) L 04/15/19 05:00 Assessment and Plan (1) Chronic kidney disease, stage III (moderate) 1. Improving to baseline with IVF Status: Chronic Priority: Medium Comment: most recent s.creat on 03/10 is 1.5 which equals to egfr of 32ml/min per MDRD equation s.creat peaked to 1.8 and was 1.3 on discharge, is a little worse PTH at goal, no acidosis, no K issues she likely has CKD from underlying DM and HTN, will obtain old records from Dr [facility] advised to improve water intake to [address] current meds will follow with repeat labs in 6-8 weeks to ensure stable renal function (2) Hypoglycemia 1. 2nd to oral hypoglycemics and poor hepatic reserve Stop glipizide due to prolonged T1/2 If diet does not work low dose starlex ac could be used as it has a shorter T1/2 and less prolonged hypoglycenic effect As much as I like metformin, it should be avoided in patients with chroic or acidosis prone Status: Acute (3) Metabolic acidosis, NAG, bicarbonate losses 1. No report of diarrhea 2. Urine pH is maximally acidicied so a proximal RTA is possible, or the effect of aldactone Status: Acute Priority: High (4) Electrolyte and fluid disorders not elsewhere classified 1. Hyponatremia due to thiazides and free H2O 2. Hypokalemia due to renal loss as counter ion for negativly charged monecules and poor diet 3. Expect K and PO4 to be low due to intracellular chifts as glucose repleated and acidosi corrected Status: Acute
[2019-04-15 12:35] LABS: Osmolality,Urine 323 mOsm/kg (80-1000)
[2019-04-15 12:39] LABS: Sodium, Urine Random 47 mmol/L
[2019-04-15] MEDS: ACETAMINOPHEN 325 MG TABLET PO PRN (20:26)
[2019-04-16] MEDS: DEXTROSE 10 % IN WATER 1,000 ML IV SCH ×2 (00:03→11:38)
[2019-04-16] MEDS: 0.9 % SODIUM CHLORIDE 10 ML SYRINGE IV SCH ×3 (04:54→22:26)
[2019-04-16] MEDS ORDERED: DEXTROSE 31 GM ORAL.SUSP PO PRN ×2 (07:17→11:02)
[2019-04-16] MEDS ORDERED: DEXTROSE 50% 50 ML VIAL IV PRN ×2 (07:17→11:02)
--- NOTE | 2019-04-16 07:20 | Internal Med Progress Note ---
Medical - PN: Subj Patient information: Note initiated : 04/16/19 at 7:16 am Service Date, if different from initiated Date: [] Patient: Ana Mendez a 88 y/o F admitted on 04/14/19 for decreased LOC, hallucinations. Chief Complaint: [] Interval history: Ms. Mendez is a 88 year old F Patient sent in from the nursing facility for altered level status hallucination diaphoretic. Only significant history is recently taken Macrobid which is stopped and poor oral intake. Patient unable to follow commands of the faci lity. Sounds like the symptoms were noted around 2 PM and where she was noted to be of nonverbal confused lethargic. And she was noticed to have asymmetry in her extremities. Work-up in ED revealed a blood glucose of 31. She is on glipizide 5 mg twice daily. Last A1c in the system was June 2018 which was 5.8. Patient was given glucose IV in the ED with rapid improvement of her symptoms. However she continues to drop and is requiring it glucose drip. In speaking with her she denies any pains or complaints at this time 2/5 Patient sleeping when arrived but easily woken by voice. Follows commands. No new complaints overnight events. Glucose more stable. Hopefully wean off glucose drip this morning. 2/6 Seems to be feeling well today. No overnight events or new complaints. Sodium within normal limits, creatinine improving. A.m. cortisol okay. Review of Systems: denies headache/fever/chills/nausea/vomiting/chest or abdominal pain/cough/dyspnea/diarrhea. Otherwise see above. - Constitutional Vitals: Vital Signs Temp Pulse Resp BP Pulse Ox 98.1 F 61 20 135/56 100 04/16/19 04:00 04/16/19 04:00 04/16/19 04:00 04/16/19 04:00 04/16/19 04:00 Period Temp Pulse Resp BP Sys/Pacheco Pulse Ox Last 24 Hr 98.1 F-99.0 F 59-64 16-20 113-156/50-68 99-100 Intake and Output 04/15/19 04/16/19 04/16/19 21:59 05:59 13:59 Intake Total 1300 240 Output Total 386 155 50 Balance 914 85 -50 Weight 61.689 kg Intake & Output: Intake & Output 04/15/19 04/16/19 04/16/19 21:59 05:59 13:59 Intake Total 1300 240 Output Total 386 155 50 Balance 914 85 -50 Weight 61.689 kg Intake: Nourishment/Supplement quantity 120 (ml) IV 1000 Lactated Ringers 1,000 ml @ 75 1000 mls/hr IV .[id number] [facility] Rx#: [id number] Oral 300 120 Output: Void Amount 385 155 50 # of times incontinent of urine 1 Other: Meal Dinner Nourishment/Supplement Percent of Meal Consumed 25% 100% Feeding Ability Independent Nourishment/Supplement name analisallo Urine Appearance Clear Clear Urine Color Pale Bright Yellow Bright Yellow Urine Odor Normal Normal # Voids 1 1 Exam: General: Alert, Awake, No acute Distress Eyes/N/T: EOMI, Head/Neck: neck supple, CV: RRR, No murmurs, Pulm: Clear b/l, no wheezing/rhonchi/rales Abd: soft, nontender, +BS x4 Ext: no clubbing/cyanosis/edema Neuro: Alert, no focal deficits, moves all extremities, Skin: warm/dry Medical - PN: Obj Da - Labs CBC & Chem 7: 04/15/19 05:00 04/16/19 05:00 Labs: Abnormal Lab Results 04/15/19 04/15/19 04/14/19 05:00 05:00 17:50 WBC RBC 3.38 L Hgb 10.9 L Hct 32.8 L MPV 11.7 H Lymph % (Auto) Gran # [place] # (Auto) WBC Morphology Abnorm A Toxic Granulation 1+ A POC PT POC INR Sodium 129 L POC Chloride Carbon Dioxide 13 L POC Total CO2 POC BUN BUN 47 H Creatinine 1.6 H POC Creatinine Glucose POC Glucose Phosphorus 2.6 L Magnesium 1.2 L Albumin 3.0 L Triglycerides 172 H Urine Protein 100 A Urine Occult Blood 0.03 A Urine RBC 2 H Hyaline Casts 3 H 04/14/19 04/14/19 04/14/19 15:50 15:50 15:50 WBC 16.3 H RBC Hgb Hct MPV 11.5 H Lymph % (Auto) 13.5 L Gran # 12.70 H [place] # (Auto) 1.31 H WBC Morphology Toxic Granulation POC PT 15.2 H POC INR 1.3 H Sodium 131 L POC Chloride 113 H Carbon Dioxide 13 L POC Total CO2 16 L POC BUN 51 H BUN 52 H Creatinine 1.9 H POC Creatinine 2.0 H Glucose 33 L* POC Glucose 32 L* Phosphorus Magnesium Albumin Triglycerides Urine Protein Urine Occult Blood Urine RBC Hyaline Casts Meds: Medications Acetaminophen (Tylenol) 650 mg PO Q6HP PRN PRN Reason: PAIN/FEVER > 101 Last Admin: 04/15/19 20:26 Dose: 650 mg Documented by: Hydrocodone Bitart/Acetaminophen ([place] 5/325mg) 1 tab PO Q6HP PRN; Protocol PRN Reason: Pain Last Admin: 04/15/19 23:27 Dose: 1 tab Documented by: Albuterol/Ipratropium (Duoneb) 3 ml NEB Q4HP PRN PRN Reason: Shortness Of Breath Diagnostic Test (Pha) (Accu-Chek) 1 each FS ACHS [facility] Last Admin: 04/15/19 20:23 Dose: 1 each Documented by: Docusate Sodium (Colace) 100 mg PO BID [facility] Last Admin: 04/15/19 20:22 Dose: 100 mg Documented by: Heparin Sodium (Porcine) (Heparin) 5,000 unit SQ Q12 [facility] Last Admin: 04/15/19 20:22 Dose: 5,000 unit Documented by: Potassium Chloride 40 meq/ (Dextrose) 520 mls @ 130 mls/hr IV UD PRN PRN Reason: Potassium < 3 Magnesium Sulfate (Magnesium Sulfate) 2 gm in 50 mls @ 50 mls/hr IV UD PRN PRN Reason: Magnesium </= 1.6 Dextrose (Dextrose 10%-Water Iv Solution) 1,000 mls @ 15 mls/hr IV .Q24H [facility] Last Admin: 04/16/19 00:03 Dose: Not Given Documented by: Meclizine HCl (Antivert) 25 mg PO TID PRN PRN Reason: vertigo Metoprolol Tartrate (Lopressor) 50 mg PO QAM [facility] Last Admin: 04/15/19 10:25 Dose: 50 mg Documented by: Ondansetron HCl (Zofran) 4 mg IV Q4HP PRN PRN Reason: Nausea And Vomiting Polyethylene Glycol (Miralax) 17 gm PO DAILYP PRN PRN Reason: Constipation Potassium Chloride (Kdur) 40 meq PO UD PRN PRN Reason: Potssium is 3-3.5 Potassium Chloride (Kdur) 40 meq PO UD PRN PRN Reason: Potassium < 3 Senna (Senokot) 2 tab PO DAILYP PRN PRN Reason: Constipation Sodium Chloride (Saline Flush) 10 ml IV Q8 [facility] Last Admin: 04/16/19 04:54 Dose: 10 ml Documented by: Medical - PN: A/P - Time Spent With Patient Total time spent is greater than 50% in coordination of care (as documented) at patient's floor/unit and/or counseling patient: - Narrative A/P Narrative: A: *Hypoglycemia in diabetic: risk factors include Age/CKD/sulfonylurea-glipizide 5mg bid -A1c 5.8, TSH wnl, AM cortisol ok -improved *TAMANNA on CKD IIIb: follows with dr penny -Improving *volume depletion: improved *Metabolic acidosis, NG: *Hyponatremia: improved *hypomag: improved *Anemia, chronic: *DM: *HTN: on chlorthalidone/ARB/aldactone *Dementia: P: -glipizide stopped, SSI coverage -Nephro consult -f/u renal fxn, monitor UOP -hold ARB/HCTZ/Aldactone -pt/ot -ppx: heparin
[2019-04-16] MEDS ORDERED: INSULIN LISPRO 1 UNIT/0.01 ML UNIT SQ SCH (07:30)
[2019-04-16 08:17] LABS: ALT/SGPT 12 U/l (0-40); AST/SGOT 20 U/l (0-37); Albumin 3.2 gm/dL (3.2-5.2); Albumin/Globulin Ratio 1.1 (1.0-2.3); Alkaline Phosphatase 46 U/L (39-117); Bilirubin,Direct < 0.2 mg/dL (0.0-0.3); Bilirubin,Total 0.3 mg/dL (0.0-1.0); Blood Urea Nitrogen 41 mg/dl (8-23); Calcium 9.1 mg/dl (8.6-10.4); Carbon Dioxide 15 mmol/L (22-30); Chloride 105 mmol/L (96-108); Globulin 2.9 gm/dL (2.2-3.7); Glomerular Filtration Rate 34; Glucose 139 mg/dL (70-105); Lactate Dehydrogenase 151 U/L (94-250); Phosphorous 2.4 mg/dL (2.7-4.5); Triglycerides 222 mg/dl (<150); Uric Acid 6.2 mg/dL (2.5-8.0)
--- NOTE | 2019-04-16 09:09 | Nephrology Progress Note ---
Subjective Patient information: Note initiated : 04/16/19 at 9:06 am Service Date, if different from initiated Date: [] Patient: Ana Mendez 88 y/o F admitted on 04/14/19 for decreased LOC, hallucinations. Chief Complaint: [] Principal diagnosis: hypoglycemia Interval history: Improved mentation, glucose and electrolytes Laboratory Tests 04/14/19 04/14/19 04/15/19 15:50 15:50 05:00 Sodium Potassium Chloride Carbon Dioxide BUN Creatinine 1.9 H 1.6 H GFR Calculation Glucose Calcium Phosphorus Magnesium TSH 1.17 Cortisol AM Sample 04/16/19 04/16/19 05:00 05:00 Sodium 133 Potassium 4.0 Chloride 105 Carbon Dioxide 15 L BUN 41 H Creatinine GFR Calculation 34 Glucose 139 H Calcium 9.1 Phosphorus 2.4 L Magnesium 1.6 TSH Cortisol AM Sample 10.2 Pertinent ROS: nothing to add Additional PMFSH (Level 3 Only): nothing to add Objective - Vital Signs Vital signs: Vital Signs Temp Pulse Resp BP Pulse Ox 04/16/19 08:00 37.1 C 16 137/66 100 04/16/19 04:00 36.7 C 61 20 135/56 100 04/16/19 02:00 64 18 99 04/15/19 23:59 37.1 C 64 18 151/63 99 04/15/19 19:52 37.2 C 59 L 20 130/68 99 04/15/19 16:00 36.9 C 62 16 156/53 100 04/15/19 12:00 36.7 C 64 16 113/50 100 Intake and Output 04/15/19 04/16/19 04/16/19 21:59 05:59 13:59 Intake Total 1300 240 Output Total 386 155 75 Balance 914 85 -75 Intake: Nourishment/Supplement quantity 120 (ml) IV 1000 Lactated Ringers 1,000 ml @ 75 1000 mls/hr IV .[id number] [facility] Rx#: [id number] Oral 300 120 Output: Urine Catheter Amount 25 Void Amount 385 155 50 # of times incontinent of urine 1 Other: Meal Dinner Nourishment/Supplement Percent of Meal Consumed 25% 100% Feeding Ability Independent Nourishment/Supplement name analisallo Urine Appearance Clear Clear Cloudy Urine Color Pale Bright Yellow Bright Yellow Urine Odor Normal Normal Normal # Voids 1 1 Weight 61.689 kg Intake & Output: Intake & Output 04/15/19 04/16/19 04/16/19 21:59 05:59 13:59 Intake Total 1300 240 Output Total 386 155 75 Balance 914 85 -75 Weight 61.689 kg Intake: Nourishment/Supplement quantity 120 (ml) IV 1000 Lactated Ringers 1,000 ml @ 75 1000 mls/hr IV .[id number] [facility] Rx#: [id number] Oral 300 120 Output: Urine Catheter Amount 25 Void Amount 385 155 50 # of times incontinent of urine 1 Other: Meal Dinner Nourishment/Supplement Percent of Meal Consumed 25% 100% Feeding Ability Independent Nourishment/Supplement name jello Urine Appearance Clear Clear Cloudy Urine Color Pale Bright Yellow Bright Yellow Urine Odor Normal Normal Normal # Voids 1 1 - General Appearance General appearance: appears started age EENT: ATNC, PERRL, mucous membranes dry Neck: no JVD Respiratory: kyphosis Cardiology: no rub, no edema, normal S1, normal S2 Gastrointestinal: normoactive bowel sounds, no tenderness, no guarding Integumentary: no rash, warm and dry Neurologic: no focal deficit, no asterixis, alert and oriented x3, CN 3-12 intact Musculoskeletal: no deformities Psychiatric: mood/affect appropriate - Lab 04/15/19 05:00 04/16/19 05:00 Most recent lab results Calcium 9.1 mg/dl (8.6-10.4) 04/16/19 05:00 Phosphorus 2.4 mg/dL (2.7-4.5) L 04/16/19 05:00 Phosphorus 2.5 mg/dL (2.7-4.5) L 04/16/19 05:00 Magnesium 1.6 mg/dL (1.6-2.5) 04/16/19 05:00 Assessment and Plan (1) Chronic kidney disease, stage III (moderate) 1. Back to baseline Status: Chronic Priority: Medium Comment: most recent s.creat on 03/10 is 1.5 which equals to egfr of 32ml/min per MDRD equation s.creat peaked to 1.8 and was 1.3 on discharge, is a little worse PTH at goal, no acidosis, no K issues she likely has CKD from underlying DM and HTN, will obtain old records from Dr [facility] advised to improve water intake to [address] current meds will follow with repeat labs in 6-8 weeks to ensure stable renal function (2) Hypoglycemia 1. I would not use glipizide 2. If you absolutely have to restart an oral hypoglycemic, 1 with a short half- life such as Starlix would be my choice Status: Acute Priority: High (3) Metabolic acidosis, NAG, bicarbonate losses I am sort of stumped by this, the best I could come up with would be spironolactone affect. It is non-anion gap with a maximal urinary acidification so I guess it could be proximal RTA Will check UAG if here tomorrow Status: Acute Priority: High (4) Electrolyte and fluid disorders not elsewhere classified 1. Hyponatremia is easily explained with diuretics and a tea and toast diet 2. I guess the hypokalemia would be due to thiazides and their affect prompting that of spironolactone. Status: Acute - Narrative A/P Narrative: At this age I would just assume and let this patient's blood pressure run on the high side her glucose on the high side and avoid using thiazide diuretics and oral hypoglycemic agents. If an oral hypoglycemic agent is necessary I do use low-dose Starlix (60 mg po ac and skip dose if ching is skipped) but I would use only if/when HgAic >8%
[2019-04-16] MEDS: DOCUSATE SODIUM 100 MG CAPSULE PO SCH ×2 (10:10→21:53)
[2019-04-16] MEDS: HEPARIN 5,000 UNIT/ML VIAL SQ SCH ×2 (10:10→21:53)
[2019-04-16] MEDS: METOPROLOL TARTRATE 50 MG TABLET PO SCH (10:10)
[2019-04-16] MEDS ORDERED: MAGNESIUM SULFATE 2 GM/50 ML BAG IV PRN (11:02)
[2019-04-16] MEDS ORDERED: MECLIZINE 25 MG TABLET PO PRN (11:02)
[2019-04-16] MEDS ORDERED: SENNOSIDES 1 TABLET PO PRN (11:02)
[2019-04-16] MEDS ORDERED: POTASSIUM CHLORIDE 20 MEQ TABLET PO PRN ×2 (11:02)
[2019-04-16] MEDS ORDERED: ACETAMINOPHEN 325 MG TABLET PO PRN (11:02)
[2019-04-16] MEDS ORDERED: HYDROcodone/APAP 5/325MG TABLET PO PRN (11:02)
[2019-04-16] MEDS ORDERED: IPRATROPIUM/ALBUTEROL 3 ML AMPUL.NEB NEB PRN (11:02)
[2019-04-16] MEDS ORDERED: POTASSIUM CHLORIDE 40 MEQ in DEXTROSE 5% IN WATER 500 ML IV PRN (11:02)
[2019-04-16] MEDS ORDERED: ONDANSETRON 4 MG/2 ML VIAL IV PRN (11:02)
[2019-04-16] MEDS ORDERED: POLYETHYLENE GLYCOL 3350 17 GM PACKET PO PRN (11:02)
[2019-04-16] MEDS: INSULIN LISPRO 1 UNIT/0.01 ML UNIT SQ SCH ×3 (12:16→21:55)
--- NOTE | 2019-04-16 13:48 | Discharge Summary ---
Medical - DS: Prov Patient information: Note initiated : 04/16/19 at 1:39 pm Service Date, if different from initiated Date: [] Patient: Ana Mendez 88 y/o F admitted on 04/14/19 for decreased LOC, hallucinations. Chief Complaint: [] Date of admission: 04/14/19 22:26 Discharge date: 04/17/19 Primary care physician: Clarisse Crisostomo Consults: 04/14/19 Consult to Physician [CONS] Stat Comment: Consulting Provider: Sal Luke Reason For Exam: Physician to Consult 04/15/19 08:28 Consult to Physician [CONS] Routine Comment: metabolic acidosis, hyponatremia Consulting Provider: Kranthi Miranda Reason For Exam: Physician to Consult Medical - DS: Meds - Discharge Medications Prescriptions: Irbesartan [Avapro] 150 mg PO DAILY #1 tab Active and Home Medications: Home Medications glipizide 5 mg tablet 5 mg PO BIDAC #60 tab 04/28/15 [Rx Confirmed 04/14/19 Last Taken 10/19/17] Losartan/Hctz 100/25 [Hyzaar 100/25] 0.5 tab PO DAILY 03/14/19 [History Confirmed 03/14/19 Last Taken Unknown] Meclizine [Antivert] 25 mg PO TID 03/14/19 [History Confirmed 04/14/19 Last Taken Unknown] Metoprolol Tartrate [Lopressor] 50 mg PO QAM 03/14/19 [History Confirmed 04/14/19 Last Taken Unknown] Levofloxacin [Levaquin] 250 mg PO DAILY #2 tab 03/16/19 [Rx Last Taken Unknown] Chlorthalidone [Hygroton] 25 mg PO DAILY 04/14/19 [History Confirmed 04/14/19 Last Taken Unknown] HYDROcodone/APAP 5/325MG [[place] 5-325Mg] 1 tab PO Q6HP PRN 04/14/19 [History Confirmed 04/14/19 Last Taken Unknown] Irbesartan [Avapro] 300 mg PO DAILY 04/14/19 [History Confirmed 04/14/19 Last Taken Unknown] Magnesium Hydroxide [Milk of Magnesia] 30 ml PO Q72 04/14/19 [History Confirmed 04/14/19 Last Taken Unknown] Polyethylene Glycol 3350 [Miralax] 17 gm PO DAILY 04/14/19 [History Confirmed 04/14/19 Last Taken Unknown] Potassium Chloride [Kdur] 20 meq PO BIDCC 04/14/19 [History Confirmed 04/14/19 Last Taken Unknown] Spironolactone [Aldactone] 12.5 mg PO ONCE 04/14/19 [History Confirmed 04/14/19 Last Taken Unknown] Home Medications Meclizine [Antivert] 25 mg PO TID 03/14/19 [History Confirmed 04/14/19 Last Taken Unknown] Metoprolol Tartrate [Lopressor] 50 mg PO QAM 03/14/19 [History Confirmed 04/14/19 Last Taken Unknown] HYDROcodone/APAP 5/325MG [[place] 5-325Mg] 1 tab PO Q6HP PRN 04/14/19 [History Confirmed 04/14/19 Last Taken Unknown] Magnesium Hydroxide [Milk of Magnesia] 30 ml PO Q72 04/14/19 [History Confirmed 04/14/19 Last Taken Unknown] Polyethylene Glycol 3350 [Miralax] 17 gm PO DAILY 04/14/19 [History Confirmed 04/14/19 Last Taken Unknown] Irbesartan [Avapro] 150 mg PO DAILY #1 tablet 04/16/19 [Rx Last Taken Unknown] Medical - DS: Hosp Hospital Course: Ms. Mendez is a 88 year old F Patient sent in from the nursing facility for altered level status hallucination diaphoretic. Only significant history is recently taken Macrobid which is stopped and poor oral intake. Patient unable to follow commands of the facility. Sounds like the symptoms were noted around 2 PM and where she was noted to be of nonverbal confused lethargic. And she was noticed to have asymmetry in her extremities. Work-up in ED revealed a blood glucose of 31. She is on glipizide 5 mg twice daily. Last A1c in the system was June 2018 which was 5.8. Patient was given glucose IV in the ED with rapid improvement of her symptoms. However she continues to drop and is requiring it glucose drip. In speaking with her she denies any pains or complaints at this time 2/5 Patient sleeping when arrived but easily woken by voice. Follows commands. No new complaints overnight events. Glucose more stable. Hopefully wean off glucose drip this morning. 2/6 Seems to be feeling well today. No overnight events or new complaints. Sodium within normal limits, creatinine improving. A.m. cortisol okay. 04/17 Patient doing well again today. No new complaints. Stable for discharge. A: *Hypoglycemia in diabetic: risk factors include Age/CKD/sulfonylurea-glipizide 5mg bid -A1c only 5.8 *TAMANNA on CKD IIIb: 2/2 volume depletion *Metabolic acidosis, NG: *Hyponatremia: improved, stopped diuretics *hypomag: improved *Anemia, chronic: *DM: *HTN: *Dementia: P: -stopped oral hypoglycemic, adhere to diabetic diet and monitor blood glucose. -diuretics stopped Discharge diagnosis: Hypoglycemia acute kidney injury volume depletion metabolic acidosis Secondary discharge diagnosis: Electrolyte imbalance anemia diabetes hypertension dementia - Time Spent with Patient Total time spent providing and/or coordinating discharge services: Greater than 30 minutes Medical - DS: Exam - Constitutional Vitals: Vital Signs Temp Pulse Resp BP Pulse Ox 04/16/19 12:00 97.9 F 64 16 133/72 04/16/19 08:00 98.7 F 16 137/66 100 04/16/19 04:00 98.1 F 61 20 135/56 100 04/16/19 02:00 64 18 99 04/15/19 23:59 98.8 F 64 18 151/63 99 04/15/19 19:52 99.0 F 59 L 20 130/68 99 04/15/19 16:00 98.4 F 62 16 156/53 100 Intake and Output 04/15/19 04/16/19 04/16/19 21:59 05:59 13:59 Intake Total 1300 240 220 Output Total 386 155 450 Balance 914 85 -230 Intake: Nourishment/Supplement quantity 120 (ml) IV 1000 Lactated Ringers 1,000 ml @ 75 1000 mls/hr IV .[id number] [facility] Rx#: [id number] Oral 300 120 220 Output: Urine Catheter Amount 25 Void Amount 385 155 425 # of times incontinent of urine 1 0 Other: Meal Dinner Nourishment/Supplement Lunch Percent of Meal Consumed 25% 100% 5 Feeding Ability Independent Independent Nourishment/Supplement name patel Urine Appearance Clear Clear Clear Urine Color Pale Bright Yellow Bright Yellow Dark Yellow Urine Odor Normal Normal Normal # Voids 1 1 Weight 61.689 kg Medical - DS: Data Labs on day of discharge: Labs from last 24 hours 04/16/19 04/16/19 04/16/19 05:00 05:00 05:00 Sodium 133 Potassium 4.0 Chloride 105 Carbon Dioxide 15 L Anion Gap 13.0 BUN 41 H Creatinine 1.4 H GFR Calculation 34 Glucose 139 H Uric Acid 6.2 Calcium 9.1 Phosphorus 2.5 L 2.4 L Magnesium 1.6 Total Bilirubin 0.3 Direct Bilirubin < 0.2 GGT 24 AST 20 ALT 12 Alkaline Phosphatase 46 Lactate Dehydrogenase 151 Total Protein 6.1 Albumin 3.2 Globulin 2.9 Albumin/Globulin Ratio 1.1 Triglycerides 222 H Cortisol AM Sample 10.2 Medical - DS: A/P - Patient/Caregiver Discharge Instructions Activity: increase activity as tolerated Diet: Consistent Carbohydrate Prescriptions: Irbesartan [Avapro] 150 mg PO DAILY #1 tab - Follow up Plan Follow up with: Clarisse Crisostomo ARNP [Primary Care Provider] - Kranthi Miranda MD [Physician] - Disposition: [facility] Prognosis: Fair Rehab Potential: Fair Overall status at discharge: patient is progressing back to baseline
[2019-04-16] MEDS ORDERED: INSULIN LISPRO 1 UNIT/0.01 ML UNIT SQ ONE (20:47)
[2019-04-16] MEDS ORDERED: MELATONIN 3 MG TABLET PO PRN (20:55)
[2019-04-16] MEDS ORDERED: MELATONIN 3 MG TABLET PO ONE (21:39)
[2019-04-17] MEDS: 0.9 % SODIUM CHLORIDE 10 ML SYRINGE IV SCH (06:15)
[2019-04-17 07:33] LABS: Bilirubin,Direct < 0.2 mg/dL (0.0-0.3); Chloride 107 mmol/L (96-108)
[2019-04-17 07:38] LABS: ALT/SGPT 12 U/l (0-40); AST/SGOT 20 U/l (0-37); Albumin 3.1 gm/dL (3.2-5.2); Alkaline Phosphatase 49 U/L (39-117); Bilirubin,Total 0.3 mg/dL (0.0-1.0); Blood Urea Nitrogen 41 mg/dl (8-23); Calcium 9.2 mg/dl (8.6-10.4); Carbon Dioxide 15 mmol/L (22-30); Glomerular Filtration Rate 37; Glucose 118 mg/dL (70-105); Lactate Dehydrogenase 245 U/L (94-250); Phosphorous 2.9 mg/dL (2.7-4.5); Triglycerides 257 mg/dl (<150); Uric Acid 5.5 mg/dL (2.5-8.0)
[2019-04-17] MEDS: DOCUSATE SODIUM 100 MG CAPSULE PO SCH (08:13)
[2019-04-17] MEDS: INSULIN LISPRO 1 UNIT/0.01 ML UNIT SQ SCH ×2 (08:13→11:10)
[2019-04-17] MEDS: HEPARIN 5,000 UNIT/ML VIAL SQ SCH (08:13)
[2019-04-17] MEDS ORDERED: METOPROLOL TARTRATE 50 MG TABLET PO SCH (09:00)
[2019-04-17] MEDS ORDERED: MAGNESIUM OXIDE 400 MG TABLET PO ONE (09:22)
[2019-04-17] MEDS: DEXTROSE 10 % IN WATER 1,000 ML IV SCH (10:16)
--- NOTE | 2019-04-17 10:24 | Discharge Summary ---
Medical - DS: Prov Patient information: Note initiated : 04/17/19 at 10:22 am Service Date, if different from initiated Date: [] Patient: Ana Mendez a 88 y/o F admitted on 04/14/19 for decreased LOC, hallucinations. Chief Complaint: [] Date of admission: 04/14/19 22:26 Primary care physician: Clarisse Crisostomo Consults: 04/14/19 Consult to Physician [CONS] Stat Comment: Consulting Provider: Sal Luke Reason For Exam: Physician to Consult 04/15/19 08:28 Consult to Physician [CONS] Routine Comment: metabolic acidosis, hyponatremia Consulting Provider: Kranthi Miranda Reason For Exam: Physician to Consult Medical - DS: Meds - Discharge Medications Prescriptions: Irbesartan [Avapro] 150 mg PO DAILY #1 tab Prescription Printed Active and Home Medications: Home Medications Meclizine [Antivert] 25 mg PO TID 03/14/19 [History Confirmed 04/14/19 Last Taken Unknown] Metoprolol Tartrate [Lopressor] 50 mg PO QAM 03/14/19 [History Confirmed 06/28 Last Taken Unknown] HYDROcodone/APAP 5/325MG [[place] 5-325Mg] 1 tab PO Q6HP PRN 04/14/19 [History Confirmed 04/14/19 Last Taken Unknown] Magnesium Hydroxide [Milk of Magnesia] 30 ml PO Q72 04/14/19 [History Confirmed 04/14/19 Last Taken Unknown] Polyethylene Glycol 3350 [Miralax] 17 gm PO DAILY 04/14/19 [History Confirmed 04/14/19 Last Taken Unknown] Irbesartan [Avapro] 150 mg PO DAILY #1 tab 04/16/19 [Rx Last Taken Unknown] Medical - DS: Hosp Hospital Course: Ms. Mendez is a 88 year old F Patient sent in from the nursing facility for altered level status hallucination diaphoretic. Only significant history is recently taken Macrobid which is stopped and poor oral intake. Patient unable to follow commands of the facility. Sounds like the symptoms were noted around 2 PM and where she was noted to be of nonverbal confused lethargic. And she was noticed to have asymmetry in her extremities. Work-up in ED revealed a blood glucose of 31. She is on glipizide 5 mg twice daily. Last A1c in the system was June 2018 which was 5.8. Patient was given glucose IV in the ED with rapid improvement of her symptoms. However she continues to drop and is requiring it glucose drip. In speaking with her she denies any pains or complaints at this time 04/15 Patient sleeping when arrived but easily woken by voice. Follows commands. No new complaints overnight events. Glucose more stable. Hopefully wean off glucose drip this morning. 04/16 Seems to be feeling well today. No overnight events or new complaints. Sodium within normal limits, creatinine improving. A.m. cortisol okay. 04/17 Patient doing well again today. No new complaints. Stable for discharge. A: *Hypoglycemia in diabetic: risk factors include Age/CKD/sulfonylurea-glipizide 5mg bid -A1c only 5.8 *TAMANNA on CKD IIIb: 2/ volume depletion *Metabolic acidosis, NG: *Hyponatremia: improved, stopped diuretics *hypomag: improved *Anemia, chronic: *DM: *HTN: *Dementia: P: -stopped oral hypoglycemic, adhere to diabetic diet and monitor blood glucose. -diuretics stopped - Time Spent with Patient Total time spent providing and/or coordinating discharge services: Medical - DS: Exam - Constitutional Vitals: Vital Signs Temp Pulse Resp BP BP Pulse Ox 04/17/19 07:00 97.2 F 20 120/61 99 04/17/19 03:00 98.2 F 67 16 120/54 98 04/16/19 23:10 97.5 F 72 14 140/70 96 04/16/19 15:53 97.5 F 64 16 127/60 98 04/16/19 12:00 97.9 F 64 16 133/72 Intake and Output 04/16/19 04/17/19 04/17/19 21:59 05:59 13:59 Intake Total 307 Output Total 550 425 200 Balance -550 -118 -200 Intake: IV 7 Oral 300 Output: Urine Catheter Amount 50 Void Amount 550 375 200 Other: Urine Appearance Clear Clear Clear Urine Color Bright Yellow Bright Yellow Dark Yellow Straw Urine Odor Normal Normal # Voids 1 3 Weight 62.199 kg Medical - DS: Data Labs on day of discharge: Labs from last 24 hours 04/17/19 05:30 Sodium 133 Potassium 4.7 Chloride 107 Carbon Dioxide 15 L Anion Gap 11.0 BUN 41 H Creatinine 1.3 H GFR Calculation 37 Glucose 118 H Uric Acid 5.5 Calcium 9.2 Phosphorus 2.9 Magnesium 1.6 Total Bilirubin 0.3 Direct Bilirubin < 0.2 GGT 24 AST 20 ALT 12 Alkaline Phosphatase 49 Lactate Dehydrogenase 245 Total Protein 6.1 Albumin 3.1 L Globulin 3.0 Albumin/Globulin Ratio 1.0 Triglycerides 257 H Medical - DS: A/P - Patient/Caregiver Discharge Instructions Diet: Consistent Carbohydrate Additional Instructions: Increase activity as tolerated. Consistent carbohydrate diet as tolerated. Prescriptions: Irbesartan [Avapro] 150 mg PO DAILY #1 tab Prescription Printed - Follow up Plan Follow up with: Kranthi Miranda MD [Physician] - 04/21/19 12:45 pm Clarisse Crisostomo ARNP [Primary Care Provider] - (please call and schedule a hospital follow up appointment.) Disposition: [facility] Care Plan Goals: This discharge packet is provided to you to help keep you informed about your care. We want to ensure you get everything you need when you go home. You will also be receiving a call from us in a few days to follow up with you and see how you are doing since your discharge. This gives us a chance to listen to any concerns you maybe experiencing since you were discharged or any additional needs you may have, as well as providing us feedback on your care experience. We strive to always provide excellent care and thank you for your feedback and for choosing [facility]. Prognosis: Fair
--- NOTE | 2019-04-17 10:53 | Nephrology Progress Note ---
Subjective Patient information: Note initiated : 04/17/19 at 10:50 am Service Date, if different from initiated Date: [] Patient: Ana Mendez a 88 y/o F admitted on 04/14/19 for decreased LOC, hallucinations. Chief Complaint: [] Principal diagnosis: hypoglycemia Interval history: Elderly female with polypharmacy at [place] leading to prolonged hypoglycemia (glipizide and reduced hepatic reserves), hyponatrenia (thiazides and tea&toast diet" and NAG metabolic acidosis w/o diarrhea so proximal RTA is suspected as once serum HCO3 <16 or so she could maximally acidify her urine) Pertinent ROS: Nothing to add to 10 point ROS Additional PMFSH (Level 3 Only): NTA Objective - Vital Signs Vital signs: Vital Signs Temp Pulse Resp BP BP Pulse Ox 04/17/19 07:00 36.2 C 20 120/61 99 04/17/19 03:00 36.8 C 67 16 120/54 98 04/16/19 23:10 36.4 C 72 14 140/70 96 04/16/19 15:53 36.4 C 64 16 127/60 98 04/16/19 12:00 36.6 C 64 16 133/72 Intake and Output 04/16/19 04/17/19 04/17/19 21:59 05:59 13:59 Intake Total 307 100 Output Total 550 425 200 Balance -550 -118 -100 Intake: IV 7 Oral 300 100 Output: Urine Catheter Amount 50 Void Amount 550 375 200 Other: Meal Breakfast Percent of Meal Consumed 75% Feeding Ability Independent Urine Appearance Clear Clear Clear Urine Color Bright Yellow Bright Yellow Dark Yellow Straw Urine Odor Normal Normal # Voids 1 3 Weight 62.199 kg Intake & Output: Intake & Output 04/16/19 04/17/19 04/17/19 21:59 05:59 13:59 Intake Total 307 100 Output Total 550 425 200 Balance -550 -118 -100 Weight 62.199 kg Intake: IV 7 Oral 300 100 Output: Urine Catheter Amount 50 Void Amount 550 375 200 Other: Meal Breakfast Percent of Meal Consumed 75% Feeding Ability Independent Urine Appearance Clear Clear Clear Urine Color Bright Yellow Bright Yellow Dark Yellow Straw Urine Odor Normal Normal # Voids 1 3 - General Appearance General appearance: well-nourished, frail EENT: ATNC, PERRL Neck: no JVD Cardiology: no murmurs, no edema, regular rate, normal S1, normal S2 Gastrointestinal: normoactive bowel sounds, no tenderness, no guarding, no organomegaly Integumentary: no rash Neurologic: no focal deficit, alert and oriented x3, CN 3-12 intact Musculoskeletal: no deformities Psychiatric: mood/affect appropriate - Lab 04/15/19 05:00 04/17/19 05:30 Most recent lab results Calcium 9.2 mg/dl (8.6-10.4) 04/17/19 05:30 Phosphorus 2.9 mg/dL (2.7-4.5) 04/17/19 05:30 Magnesium 1.6 mg/dL (1.6-2.5) 04/17/19 05:30 Assessment and Plan (1) Chronic kidney disease, stage III (moderate) 1. Back to baseline Status: Chronic Priority: Medium Comment: most recent s.creat on 03/10 is 1.5 which equals to egfr of 32ml/min per MDRD equation s.creat peaked to 1.8 and was 1.3 on discharge, is a little worse PTH at goal, no acidosis, no K issues she likely has CKD from underlying DM and HTN, will obtain old records from Dr [facility] advised to improve water intake to [address] current meds will follow with repeat labs in 6-8 weeks to ensure stable renal function (2) Hypoglycemia 1. I would not use glipizide 2. If you absolutely have to restart an oral hypoglycemic, 1 with a short half-life such as Starlix would be my choice Status: Acute Priority: High (3) Metabolic acidosis, NAG, bicarbonate losses I am sort of stumped by this, the best I could come up with would be spironolactone affect. It is non-anion gap with a maximal urinary acidification so I guess it could be proximal RTA Will check UAG if here tomorrow Status: Acute Priority: High (4) Electrolyte and fluid disorders not elsewhere classified 1. Hyponatremia is easily explained with diuretics and a tea and toast diet 2. I guess the hypokalemia would be due to thiazides and their affect prompting that of spironolactone. Status: Acute - Narrative A/P Narrative: Home today on following Rx
== END 2019-04-17 11:54 | DRG 638 ==
LOC: ED 14:57 → ICU 22:26 → MEDSUR 04-16 11:15
PROVIDERS: ADMIT Internal Medicine; ATTEND Internal Medicine